=== PATIENT | female | born 1965 | race Caucasian/White ===

== ENCOUNTER → 2016-12-05 | Day surgery (SDC) | payer OTHER ==
[2016-11-28 12:08] VITALS: Ht 160 cm; Wt 99.5 kg
[~2016-12-05] VITALS: Ht 160 cm; Wt 99.5 kg
[~2016-12-05] MED LIST: ATOR-24 PO; ATROPINE SULFATE 0.1 MG/ML 5ML SYR IV PRN; BLADDER PILL PO; CHOL100010 PO; CHOL100041 PO; CITA20TA4 PO; CYAN100020 PO; DTRSR/2 PO; EpHEDrine SULFATE INJ 50 MG/ML AMP IV PRN; LEVOIUD; LIDOCAINE HCL 2% 2 ML VIAL (20MG/ML) ONE; METH118C PO; MIRA1TAB3 PO; MYRBETRIQ PO; OXYC1TAB3 PO; PANT40TA PO; PENT100C6 PO; PROPOFOL IV EMULSION 10 MG/ML 20 ML VIAL IV ONE; RANI150T3 PO; SODIUM CHLORIDE 0.9% 500ML 500 ML IV ONE
--- NOTE | 2016-12-05 12:05 | Endo History and Physical ---
History & Physical Date of Service: Dec 05, 2016. Chief Complaint: Nausea, abd pain Referring Physician: Dr. Val Jose History of Present Illness 51 yo CF who presents for EGD secondary to nausea and abdominal pain. Past Surgical History Hx Cardiac Surgery: No Hx Internal Defibrillator: No Hx Pacemaker: No Hx Abdominal Surgery: No Hx of Implantable Prosthesis: No Hx Post-Op Nausea and Vomiting: No Hx Cancer Surgery: No Hx Thoracic Surgery: No Hx Orthopedic: No Hx Urinary Tract Surgery: Yes (BLADDER SURGERY) Family History Polyp Social History Smoking Status: Never Smoker Hx Substance Use: No Hx Alcohol Use: No Allergies Coded Allergies: Sulfa Drugs (Verified Allergy, Severe, GOES ALMOST BLIND, 11/28/16) Iodinated Contrast Media (Verified Allergy, Intermediate, HIVES/ITCHING, BIG LUMPS/WELTS, 11/28/16) RECEIVED MEDROL PRIOR TO EXAM 12/28/12 PT WAS SCANNED IN 2008. APPROX 10 MINUTES AFTER THE INJECTION SHE DEVELOPED HIVES, WELTS AND ITCHING ON HER BACK. KAF Current Medications Reported Home Medications Medications Dose Route/Sig Max Daily Dose Days Date Category Dose Instructions Uribel (Avqvavavhci-Uieek-Xxaqljqqi Bl) 1 Cap Cap 1 Cap PO QID 11/28/16 Reported NEW PRESCRIPTION - HAS NOT STARTED YET Detrol LA (Tolterodine Tartrate) 2 Mg Capcr 1 Cap PO QAM 11/28/16 Reported NEW PRESCRIPTION - HAS NOT STARTED YET Mirena (Levonorgestrel (Iud)) 20 Mcg/24 Hr Iud 1 CONTINOUS 11/28/16 Reported Zantac (Ranitidine HCl) 150 Mg Tab 150 Mg PO HS 11/28/16 Reported Protonix (Pantoprazole Sodium) 40 Mg Tab 40 Mg PO QAM 11/28/16 Reported Vitamin B12 (Cyanocobalamin) 1,000 Mcg Tab 1,000 Mcg PO HS 06/01/16 Reported Citalopram Hydrobromide 20 Mg Tab 20 Mg PO HS 02/18/16 Reported Vitamin D (Cholecalciferol) 1,000 Inter.unit Tab 1,000 Inter.unit PO HS 06/01/15 Reported Lipitor (Atorvastatin Calcium) 40 Mg Tab 40 Mg PO HS 06/01/15 Reported Vital Signs Weight (Kilograms): 99.55 Height (Feet): 5 Height (Inches): 3 Date Time Temp Pulse Resp B/P Pulse Ox O2 Delivery O2 Flow Rate FiO2 12/05/16 11:40 36.8 83 20 150/94 100 Room Air Physical Exam General Appearance: WD/WN, no apparent distress Respiratory/Chest: Auscultation: breath sounds normal Cardiovascular: Heart Auscultation: RRR Abdomen: Bowel Sounds: normal Inspection & Palpation: soft, non-distended, no tenderness, guarding & rebound Assessment and Plan Assessment: 51 yo CF who presents for EGD secondary to nausea and abdominal pain. Plan: Proceed with colonoscopy.
--- NOTE | 2016-12-05 12:18 | GI REPORT ---
Procedure Date: 12/05/2016 11:52 AM Procedure: Upper GI endoscopy Indications: Epigastric abdominal pain Medicines: Monitored Anesthesia Care Complications: No immediate complications. Estimated Blood Loss: Estimated blood loss: none. Procedure: Pre-Anesthesia Assessment: - Prior to the procedure, a History and Physical was performed, and patient medications and allergies were reviewed. The patient's tolerance of previous anesthesia was also reviewed. The risks and benefits of the procedure and the sedation options and risks were discussed with the patient. All questions were answered, and informed consent was obtained. Prior Anticoagulants: The patient has taken no previous anticoagulant or antiplatelet agents. ASA Grade Assessment: II - A patient with mild systemic disease. After reviewing the risks and benefits, the patient was deemed in satisfactory condition to undergo the procedure. After obtaining informed consent, the endoscope was passed under direct vision. Throughout the procedure, the patient's blood pressure, pulse, and oxygen saturations were monitored continuously. The scope was introduced through the mouth, and advanced to the second part of duodenum. The upper GI endoscopy was accomplished without difficulty. The patient tolerated the procedure well. Findings: The esophagus was normal. A small hiatus hernia was present. Localized moderate inflammation characterized by erythema was found in the gastric antrum. Biopsies were taken with a cold forceps for histology. The examined duodenum was normal. Impression: - Normal esophagus. - Small hiatus hernia. - Gastritis. Biopsied. - Normal examined duodenum. Recommendation: - Resume previous diet. - Continue present medications. - Await pathology results. - Return to primary care physician as previously scheduled. Juvenal Boyer DO 12/05/2016 12:17:49 PM This report has been signed electronically. Note Initiated On: 12/05/2016 11:52 AM
--- NOTE | 2016-12-05 12:18 | Discharge Instructions ---
Endoscopy Patient Instructions Date / Procedure(s) Performed Dec 05, 2016. EGD Allergy Information Coded Allergies: Sulfa Drugs (Verified Allergy, Severe, GOES ALMOST BLIND, 11/28/16) Iodinated Contrast Media (Verified Allergy, Intermediate, HIVES/ITCHING, BIG LUMPS/WELTS, 11/28/16) RECEIVED MEDROL PRIOR TO EXAM 12/28/12 PT WAS SCANNED IN 2008. APPROX 10 MINUTES AFTER THE INJECTION SHE DEVELOPED HIVES, WELTS AND ITCHING ON HER BACK. KAF Discharge Date / Findings Dec 05, 2016. Gastritis s/p biopsies Hiatal hernia Medication Instructions Stopped Medication(s): Patient was told to take only her protonix this am. OK to resume all medications today as prescribed. Reported Home Medications Medications Dose Route/Sig Max Daily Dose Days Date Category Dose Instructions Uribel (Oqduifbyoet-Uwnvu-Pskwfupji Bl) 1 Cap Cap 1 Cap PO QID 11/28/16 Reported NEW PRESCRIPTION - HAS NOT STARTED YET Detrol LA (Tolterodine Tartrate) 2 Mg Capcr 1 Cap PO QAM 11/28/16 Reported NEW PRESCRIPTION - HAS NOT STARTED YET Mirena (Levonorgestrel (Iud)) 20 Mcg/24 Hr Iud 1 CONTINOUS 11/28/16 Reported Zantac (Ranitidine HCl) 150 Mg Tab 150 Mg PO HS 11/28/16 Reported Protonix (Pantoprazole Sodium) 40 Mg Tab 40 Mg PO QAM 11/28/16 Reported Vitamin B12 (Cyanocobalamin) 1,000 Mcg Tab 1,000 Mcg PO HS 06/01/16 Reported Citalopram Hydrobromide 20 Mg Tab 20 Mg PO HS 02/18/16 Reported Vitamin D (Cholecalciferol) 1,000 Inter.unit Tab 1,000 Inter.unit PO HS 06/01/15 Reported Lipitor (Atorvastatin Calcium) 40 Mg Tab 40 Mg PO HS 06/01/15 Reported Provider Instructions Activity Restrictions - No exercising or heavy lifting for 24 hours. - Do not drink alcohol the day of the procedure. - Do not drive a car or operate machinery until the day after the procedure. - Do not make any important decisions or sign important papers in 24 hours after the procedure. Following Day: - Return to full activity which may include returning to work/school. Diet Start your diet with liquids and light foods (jello, soup, juice, toast). Then eat your usual diet if not nauseated. Treatment For Common After Affects For mild abdominal pain, bloating, or excessive gas: - Rest - Eat lightly - Lie on right side Follow-Up Information Follow-up with Dr. Val Jose as scheduled Anesthesia Information What You Should Know You have had a procedure that required some medicine to reduce anxiety and discomfort. This treatment is called moderate sedation. After receiving the treatment, you may be sleepy, but you will be able to breathe on your own. The effects of the treatment may last for several hours. Follow these instructions along with Activity/Diet recommendations noted above: * Do NOT do anything where dizziness or clumsiness would be dangerous. * Rest quietly at home today, then you can be up and about tomorrow. * Have a responsible person stay with you the rest of today. * You may have had an I.V. today. If so, you may take the dressing off later today. Recommendations Call your doctor if: * Trouble breathing * Continuous vomiting for more than 24 hours * Temperature above 101 degrees * Severe abdominal pain or bloating * Pain not relieved by pain medicine ordered * There is increased drainage or redness from any incision * A large amount of rectal bleeding greater than 2-3 tablespoons. (If you had a polyp/s removed or have hemorrhoids, a small amount of blood - from the rectum is to be expected.) * You have any unanswered questions or concerns. IN THE EVENT OF A SERIOUS EMERGENCY, GO TO THE NEAREST EMERGENCY ROOM Your discharge instructions were prepared by provider Juvenal Boyer. Patient Instructions Signature Page Mounika Sullivan Patient (or Guardian) Signature/Date: I have read and understand the instructions given to me by my caregivers. Caregiver/RN/Doctor Signature/Date: The above-named patient and/or guardian has received patient instructions on this date. + Original Patient Signature Page (only) stays with chart. Please make copy for patient.
--- NOTE | 2016-12-05 12:33 | Anesthesiology Progress Note ---
Anesthesia Post Op Note Date & Time Dec 05, 2016 at 12:32 Vital Signs Pain Intensity: 0 Vital Signs Past 12 Hours Date Time Temp Pulse Resp B/P Pulse Ox O2 Delivery O2 Flow Rate FiO2 12/05/16 12:23 88 20 127/83 97 Room Air 12/05/16 11:40 36.8 83 20 150/94 100 Room Air Notes Mental Status: alert / awake / arousable, participated in evaluation Pt Amnestic to Procedure: Yes Nausea / Vomiting: adequately controlled Pain: adequately controlled Airway Patency, RR, SpO2: stable & adequate BP & HR: stable & adequate Hydration State: stable & adequate Anesthetic Complications: no major complications apparent
[2016-12-05 12:53] VITALS: BP 140/77; PULSE 74; O2SAT 98
== END | disposition home or self-care (01) ==
LOC: C.GI 10:40
PROVIDERS: ATTEND Internal Medicine
DX: K29.50 Unspecified chronic gastritis without bleeding (principal); K44.9 Diaphragmatic hernia without obstruction or gangrene; Z83.71 Family history of colonic polyps

== ENCOUNTER → 2017-02-27 | Outpatient (CLI) | payer OTHER ==
[~2017-02-27] MED LIST changes: -ATROPINE SULFATE 0.1 MG/ML 5ML SYR IV PRN; -DTRSR/2 PO; -EpHEDrine SULFATE INJ 50 MG/ML AMP IV PRN; -LEVOIUD; -LIDOCAINE HCL 2% 2 ML VIAL (20MG/ML) ONE; -METH118C PO; -PROPOFOL IV EMULSION 10 MG/ML 20 ML VIAL IV ONE; -RANI150T3 PO; -SODIUM CHLORIDE 0.9% 500ML 500 ML IV ONE
== END | disposition home or self-care (01) ==
LOC: C.PATHSPEC 14:19
PROVIDERS: ATTEND Obstetrics & Gynecology
DX: N92.0 Excessive and frequent menstruation with regular cycle (principal)

== ENCOUNTER → 2017-02-27 | Outpatient (CLI) | payer OTHER | END | disposition home or self-care (01) | LOC: C.PAPS 15:15 | PROVIDERS: ATTEND Obstetrics & Gynecology | DX: N92.0 Excessive and frequent menstruation with regular cycle (principal); R87.616 Satisfactory cervical smear but lacking transformation zone ==

== ENCOUNTER → 2017-03-23 | Day surgery (SDC) | payer OTHER ==
[2017-02-21 12:20] VITALS: Ht 160 cm; Wt 98.6 kg
[2017-02-27 12:45] LABS: BASO % 0.1 %; BASO ABS # 0.01 K/uL (0-0.2); COMPLETE YES; EOS % 1.1 %; HEMATOCRIT 39.6 % (37-47); IG% 0.1 %; LYMPH % 19.9 %; LYMPH ABS # 1.41 K/uL (1.2-3.4); MEAN CELL VOLUME 85.3 fL (80-100); MEAN CORPUSCULAR HEMOGLOBIN 28.2 pg (25-34); MEAN CORPUSCULAR HGB CONC 33.1 g/dl (32-36); MEAN PLATELET VOLUME 9.8 fL (7.4-10.4); MONO % 7.1 %; NEUT % 71.7 %; PLATELET COUNT 270 K/uL (130-400); RED BLOOD COUNT 4.64 M/uL (4.2-5.4); WHITE BLOOD COUNT 7.08 K/uL (4.8-10.8)
[~2017-03-23] VITALS: Ht 160 cm; Wt 98.6 kg
[~2017-03-23] MED LIST changes: +ACETIC ACID 4% (WHITE VINEGAR) 30ML ONE; +ATROPINE SULFATE 0.1 MG/ML 5ML SYR IV PRN; +DEXAMETHASONE SOD INJ 4 MG/ML VIAL ONE; +EpHEDrine SULFATE INJ 50 MG/ML AMP IV PRN; +FENTANYL CITRATE INJ 50 MCG/1 ML 2 ML VIAL IV PRN; +FENTANYL CITRATE INJ 50 MCG/1 ML 2 ML VIAL ONE; +FLUMAZENIL 0.1 MG/1 ML 10 ML VIAL IV PRN; +HYDROmorphone INJ 2 MG/ML SYR/VIAL IV PRN; +KETOROLAC TROMETHAMINE 30 MG/ML VIAL ONE; +LABETALOL HCL IV 5 MG/ML 20ML IV PRN; +LACTATED RINGER'S 1000ML 1,000 ML IV SCH; +LIDOCAINE HCL 2% 2 ML VIAL (20MG/ML) ONE; +MEPERIDINE HCL 25 MG/ML CARP IV PRN; +MIDAZOLAM HCL 1 MG/ML 2ML VIAL ONE; +NALOXONE HCL 0.4 MG/1 ML VIAL/CARP IV PRN; +ONDANSETRON INJ 2 MG/ML 2 ML VIAL IV PRN; +ONDANSETRON INJ 2 MG/ML 2 ML VIAL ONE; +OXYCODONE/ACETAMINOPHEN 5-325 TAB PO PRN; +PHENYLEPHRINE 100MCG/ML 5ML SYR IV PRN; +PROMETHAZINE HCL INJ 25 MG in SODIUM CHLORIDE 0.9% 50ML 50 ML IV PRN; +PROPOFOL IV EMULSION 10 MG/ML 20 ML VIAL IV ONE; +SODIUM CHLORIDE 0.9% 1000ML 1,000 ML IV SCH
--- NOTE | 2017-03-23 09:52 | History & Physical Bridge - SC ---
H&P Re-Evaluation Bridge Note: I have examined the patient, reviewed the History & Physical and in the interval since the performance of the History & Physical I have noted the following changes of clinical significance: No changes noted
--- NOTE | 2017-03-23 11:31 | [facility] Post Operative Brief Note ---
Immediate Operative Summary Operative Date March 23, 2017. Pre-Operative Diagnosis Menorrhagia Post-Operative Diagnosis Same Procedure(s) Performed Dilatation And Curettage, Hysteroscopic Endometrial Ablation With Novasure Surgeon Dr. Harding Admissions Rn Surgeon(s) None Estimated Blood Loss 10ml Findings Uterus sounded to 9cm, Cervix measured 3cm, therefore cavity 6cm. Bilateral tubal ostia visualized. Cavity width 2.0cm. Power 66. Time 1 min 35 sec. Fluid deficit 500cc. Post-Novasure hysteroscopy shows successful burn of tissue - no pink noted. Specimens A. Endometrial Curettings Drains Patient emptied bladder prior to procedure Anesthesia General Complication(s) None Disposition Recovery Room / PACU
--- NOTE | 2017-03-23 11:43 | Discharge Instructions-SurgCtr ---
Discharge Instructions Date of Service March 23, 2017. Visit Reason for Visit: Menorrhagia Discharge Discharge Diagnosis / Problem: s/p endometrial ablation Discharge Goals Goal(s): Diagnostic testing, Therapeutic intervention Activity Recommendations Activity Limitations: per Instructions/Follow-up section Anesthesia . Post Anesthesia Instructions: If you have had General Anesthesia or IV Sedation: * Do not drive today. * Resume driving when surgeon permits. * Do not make important decisions or sign legal documents today. * Call surgeon for: 1. Temperature elevations greater than 101 degrees F. 2. Uncontrollable pain. 3. Excessive bleeding. 4. Persistent nausea and vomiting. 5. Medication intolerance (nausea, vomiting or rash). * For nausea and vomiting use only clear liquids such as: tea, soda, bouillon until nausea subsides, then gradually increase diet as tolerated. * If you have any concerns or questions, call your surgeon's office. If physician is unavailable and it is an emergency, call 911 or go to the nearest emergency room. . Instructions / Follow-Up Instructions / Follow-Up ACTIVITY RECOMMENDATIONS: * Avoid tampons, douching, hot tubs, pools, and intercourse until bleeding has stopped - OR AT LEAST 2 WEEKS. * May shower as usual. * No strenuous activity for 24-48 hours. After 24-48 hours, you may do anything you feel like doing (driving and sports are okay). SPECIAL CARE INSTRUCTIONS: Special Diet: * Mild nausea may occur in the immediate post-operative period. * Take clear liquids such as tea, cola or bouillon until all nausea has subsided; you may then resume your normal diet. Special Care: * Light bleeding and vaginal spotting can last from a few days to 3-4 weeks. Call your doctor if bleeding becomes heavier than the heaviest part of your period. * Check your temperature twice a day for one week. If it goes above 100.4 degrees Fahrenheit (38.0 Celsius), notify your doctor. * Call your doctor's office for an appointment for 2 weeks after your surgery. FOLLOW-UP VISIT: Call your doctor's office for an appointment for 2 weeks after your surgery. Diet Recommendations Home Diet: resume previous diet Procedures Procedures Performed: Dilatation And Curettage, Hysteroscopic Endometrial Ablation With Novasure Pending Studies Studies pending at discharge: yes List of pending studies: D&C - pathology Medical Emergencies . Who to Call and When: Medical Emergencies: If at any time you feel your situation is an emergency, please call 911 immediately. . Non-Emergent Contact Non-Emergency issues call your: Primary Care Provider, Accounting Generalist . . "Provider Documentation" section prepared by Trinity Harding. .
--- NOTE | 2017-03-23 12:01 | Anesthesia Progress Nt - [facility] ---
Anesthesia Post Op Note Date & Time March 23, 2017 at 12:01 Vital Signs Pain Intensity: 0 Vital Signs Past 12 Hours Date Time Temp Pulse Resp B/P Pulse Ox O2 Delivery O2 Flow Rate FiO2 03/23/17 11:34 36.4 96 16 133/88 98 Mask 6 03/23/17 09:08 36.8 80 20 144/91 97 Room Air Notes Mental Status: alert / awake / arousable, participated in evaluation Pt Amnestic to Procedure: Yes Nausea / Vomiting: adequately controlled Pain: adequately controlled Airway Patency, RR, SpO2: stable & adequate BP & HR: stable & adequate Hydration State: stable & adequate Anesthetic Complications: no major complications apparent
[2017-03-23 12:35] VITALS: TEMP 36.6
[2017-03-23 13:15] VITALS: BP 145/86; PULSE 67; O2SAT 97
--- NOTE | 2017-03-24 07:05 | OPERATIVE REPORT ---
DATE OF OPERATION: 03/23/2017 SURGEON: Trinity Harding DO PREOPERATIVE DIAGNOSIS: Menorrhagia. POSTOPERATIVE DIAGNOSIS: Same. PROCEDURES PERFORMED: 1. Hysteroscopy. 2. D\T\C. 3. NovaSure endometrial ablation. STRAIGHT SLICING MACHINE OPERATOR: None. ESTIMATED BLOOD LOSS: 10 mL. FINDINGS: Uterus sounded to 9 cm and cervix measured 3 cm; therefore cavity 6 cm. Bilateral tubal ostia visualized. Cavity 2.0 cm width. Power 66. Time of burn 1 minute 35 seconds. Fluid deficit 500 mL. Post-NovaSure hysteroscopy shows successful burn of tissue with no pink tissue noted. SPECIMENS: Endometrial curettings. DRAINS: The patient emptied the bladder prior to procedure. ANESTHESIA: General. COMPLICATIONS: None. DISPOSITION: Stable and good to recovery room. INDICATIONS FOR PROCEDURE: The patient is a 51-year-old with a longstanding history of heavy periods, had tried IUD as well as oral contraceptive pills and these were unsuccessful for controlling her bleeding. In-office endometrial biopsy performed prior to procedure revealed negative pathology and she elected to proceed with NovaSure ablation for treatment of heavy periods. DESCRIPTION OF PROCEDURE: The patient was taken to the operating room, where general anesthesia was administered. She was prepared and draped in the usual sterile fashion with feet in candy cane stirrups. Vinegar was used for vaginal prep due to a Betadine allergy. The weighted speculum was placed in the vagina. The cervix was visualized and the anterior lip was grasped with a single tooth tenaculum. The uterus was sounded to the above noted findings. The cervix was sequentially dilated to admit the hysteroscope. This was inserted and the cavity was viewed. Bilateral tubal ostia were noted. Pictures were taken and the hysteroscope was withdrawn. The NovaSure device was inserted and the cavity width was 2.0 cm. This initially was thought to be too narrow for the patient's cavity, but the NovaSure device was removed. The hysteroscope was inserted and after notation of endometrial tissue damage from the NovaSure confirming that it was sitting both sides of her uterine cavity, decision was made to proceed with the NovaSure ablation. A gentle curettage was performed with a sharp curette and these endometrial curettings were sent to pathology for evaluation. NovaSure was reinserted and was deployed and cavity check was successful. The burn was then completed at a time of 1 minute 35 seconds and upon completion of the burn, the NovaSure device was withdrawn and the hysteroscope was replaced through the cervical canal to view the intrauterine cavity and a successful burn was noted with burned tissue and no pink areas of the intrauterine cavity noted. All instruments were then removed from the uterus and vagina. Excellent hemostasis was noted. The patient was cleaned of all prep and was taken from the operating room to the recovery room in stable and good condition. The patient will follow up in the office in 2 weeks and review pathology results. She was taken to recovery room in stable and good condition. I attest to the content of the Intraoperative Record and any orders documented therein. Any exceptio ns are noted below.
== END | disposition home or self-care (01) ==
LOC: X.SURG 08:50
PROVIDERS: ATTEND Obstetrics & Gynecology
DX: N92.0 Excessive and frequent menstruation with regular cycle (principal); M19.90 Unspecified osteoarthritis, unspecified site; Z68.39 Body mass index [BMI] 39.0-39.9, adult; F32.9 Major depressive disorder, single episode, unspecified; Z88.2 Allergy status to sulfonamides; Z79.899 Other long term (current) drug therapy; Z80.6 Family history of leukemia; Z83.3 Family history of diabetes mellitus; Z82.49 Family history of ischemic heart disease and other diseases of the circulatory system; Z80.3 Family history of malignant neoplasm of breast

== ENCOUNTER → 2017-04-11 | Outpatient (CLI) | payer OTHER ==
[~2017-04-11] MED LIST changes: -ACETIC ACID 4% (WHITE VINEGAR) 30ML ONE; -ATROPINE SULFATE 0.1 MG/ML 5ML SYR IV PRN; -DEXAMETHASONE SOD INJ 4 MG/ML VIAL ONE; -EpHEDrine SULFATE INJ 50 MG/ML AMP IV PRN; -FENTANYL CITRATE INJ 50 MCG/1 ML 2 ML VIAL IV PRN; -FENTANYL CITRATE INJ 50 MCG/1 ML 2 ML VIAL ONE; -FLUMAZENIL 0.1 MG/1 ML 10 ML VIAL IV PRN; -HYDROmorphone INJ 2 MG/ML SYR/VIAL IV PRN; -KETOROLAC TROMETHAMINE 30 MG/ML VIAL ONE; -LABETALOL HCL IV 5 MG/ML 20ML IV PRN; -LACTATED RINGER'S 1000ML 1,000 ML IV SCH; -LIDOCAINE HCL 2% 2 ML VIAL (20MG/ML) ONE; -MEPERIDINE HCL 25 MG/ML CARP IV PRN; -MIDAZOLAM HCL 1 MG/ML 2ML VIAL ONE; -NALOXONE HCL 0.4 MG/1 ML VIAL/CARP IV PRN; -ONDANSETRON INJ 2 MG/ML 2 ML VIAL IV PRN; -ONDANSETRON INJ 2 MG/ML 2 ML VIAL ONE; -OXYCODONE/ACETAMINOPHEN 5-325 TAB PO PRN; -PHENYLEPHRINE 100MCG/ML 5ML SYR IV PRN; -PROMETHAZINE HCL INJ 25 MG in SODIUM CHLORIDE 0.9% 50ML 50 ML IV PRN; -PROPOFOL IV EMULSION 10 MG/ML 20 ML VIAL IV ONE; -SODIUM CHLORIDE 0.9% 1000ML 1,000 ML IV SCH
== END | disposition home or self-care (01) ==
LOC: C.LAB 16:58
PROVIDERS: ATTEND Urology
DX: N39.0 Urinary tract infection, site not specified (principal)

== ENCOUNTER → 2017-05-17 | Outpatient (CLI) | payer OTHER ==
--- NOTE | 2017-05-17 13:06 | MAMMOGRAPHY REPORT ---
BILATERAL DIGITAL SCREENING MAMMOGRAM TOMOSYNTHESIS WITH CAD: 05/17/2017 CLINICAL HISTORY: Routine screening. Patient has no complaints. TECHNIQUE: Breast tomosynthesis in addition to standard 2D mammography was performed. Current study was also evaluated with a Computer Aided Detection (CAD) system. COMPARISON: Comparison is made to exams dated: 05/16/2016 mammogram, 05/13/2015 mammogram, 05/12/2014 m ammogram, 05/08/2013 mammogram, 05/07/2012 mammogram, and 04/13/2011 ultrasound - [facility]. BREAST COMPOSITION: There are scattered areas of fibroglandular density in both breasts. FINDINGS: There is a 3.8 mm focal asymmetry in the upper outer posterior left breast, for which samara tional spot compression tomosynthesis views and possibly ultrasound are recommended. A 5.3 mm oval, partially circumscribed mass in the approximate 9:00 left breast could represent a cyst. However, ad ditional targeted ultrasound and possible additional mammographic views are recommended. No other suspicious mass, architectural distortion or cluster of microcalcifications is seen bilatera lly. IMPRESSION: ACR BI-RADS CATEGORY 0: INCOMPLETE EVALUATION: NEED ADDITIONAL IMAGING EVALUATION The 3.8 mm focal asymmetry in the upper outer posterior left breast, and 5.3 mm oval, partially circu mscribed mass in the 9:00 left breast need additional imaging evaluation. The patient will be called to schedule an appointment. Approximately 10% of breast cancers are not detected with mammography. A negative mammographic report should not delay biopsy if a clinically suggestive mass is present. Emeli Silva M.D. ay/:05/17/2017 08:13:12 Director Cloud Transformation: Lesly HERRERA(R)(Collette), [facility] letter sent: Addl Imaging 0 BI-RADS Code: ACR BI-RADS Category 0: Incomplete Evaluation: Need Additional Imaging Evaluation
== END | disposition home or self-care (01) ==
LOC: C.MAMM 07:25
PROVIDERS: ATTEND Obstetrics & Gynecology
DX: Z12.31 Encounter for screening mammogram for malignant neoplasm of breast (principal); N64.89 Other specified disorders of breast; N63 Unspecified lump in breast

== ENCOUNTER → 2017-05-18 | Outpatient (CLI) | payer OTHER | END | disposition home or self-care (01) | LOC: C.PATHSPEC 10:56 | PROVIDERS: ATTEND Urology | DX: R31.29 Other microscopic hematuria (principal) ==

== ENCOUNTER → 2017-05-29 | Outpatient (CLI) | payer OTHER ==
--- NOTE | 2017-05-29 14:31 | MAMMOGRAPHY REPORT ---
UNILATERAL LEFT DIGITAL DIAGNOSTIC MAMMOGRAM TOMOSYNTHESIS AND TARGETED LEFT ULTRASOUND: 05/29/2017 CLINICAL HISTORY: 51-year-old woman called back from screening mammography for a small 4 mm focal asy mmetry in the left upper outer quadrant, and a circumscribed 5 mm mass in the medial aspect of the le ft breast. TECHNIQUE: Spot compression CC and MLO 2-D digital and tomosynthesis images of the left breast were obtained. COMPARISON: Comparison is made to exams dated: 05/17/2017 mammogram, 05/16/2016 mammogram, 05/13/2015 m ammogram, 05/12/2014 mammogram, 05/08/2013 mammogram, and 05/07/2012 mammogram - [facility]. BREAST COMPOSITION: There are scattered areas of fibroglandular density in the left breast. FINDINGS: There is persistence of a non-circumscribed 3.6 x 3.4 x 3.4 mm mass versus focal asymmetry in the upper outer posterior left breast, approximately 12.6 cm from the nipple. No associated arch itectural distortion or microcalcification. Further evaluation with ultrasound was performed. There is a low density oval circumscribed 5.6 x 3.1 x 3.1 mm mass in the medial left breast on the spot co mpression CC view, projecting just below the posterior nipple line on the MLO view in the approximate 8:00 to 9:00 axis. Further evaluation with ultrasound was performed. Targeted ultrasound was performed in the medial left breast and also the upper outer quadrant. Throu ghout the medial left breast, normal fibroglandular tissue is seen without a discrete solid or cystic mass. In the 1:00 axis approximately 10 cm from the nipple, there is a rounded hypoechoic mass with out evidence of posterior shadowing or posterior acoustic enhancement. It measures 2.4 x 2.3 x 2.2 m m and likely correlates with the mammographic focal asymmetry versus mass in the upper outer quadrant . This is indeterminate and definitive characterization with ultrasound guided cyst aspiration versu s core needle biopsy is recommended. IMPRESSION: ACR BI-RADS CATEGORY 4: SUSPICIOUS, TARGETED ULTRASOUND ACR BI-RADS CATEGORY 4: SUSPICIO US 1. Ultrasound guided cyst aspiration versus core needle biopsy is recommended for a small, 2.4 mm so lid versus cystic mass in the 1:00 left breast, 10 cm from the nipple, thought to correlate with the mammographic mass versus focal asymmetry in the upper outer quadrant. 2. A circumscribed oval 5 x 3 mm mass in the lower inner quadrant of the left breast has no sonograp hic correlate identified. Given the circumscribed borders and benign mammographic features this most likely represents a benign cyst. It does not appear significantly changed comparing to the prior 20 16 mammograms. Nevertheless, pending benign pathology results in the 1:00 axis, a short interval fol low-up diagnostic left mammogram and possible repeat ultrasound is recommended to ensure stability in 6 months. These results and recommendations were discussed with the patient at the time of the exam. She tenta tively scheduled the left breast procedure prior to leaving the department. Approximately 10% of breast cancers are not detected with mammography. A negative mammographic report should not delay biopsy if a clinically suggestive mass is present. Emeli Silva M.D. ay/:05/29/2017 12:14:19 Manager Intelligence: Lesly VALDERRAMA)(Collette), [facility] letter sent: Abnormal 4/5 BI-RADS Code: ACR BI-RADS Category 4: Suspicious Ultrasound BI-RADS: ACR BI-RADS Category 4: Suspici ous
== END | disposition home or self-care (01) ==
LOC: C.MAMM 09:49
PROVIDERS: ATTEND Obstetrics & Gynecology
DX: N63 Unspecified lump in breast (principal)

== ENCOUNTER 2017-06-03 11:16 | Emergency (ER) | payer OTHER ==
[~2017-06-03] VITALS: Ht 160 cm; Wt 9.0 kg
[~2017-06-03 11:16] MED LIST changes: -CHOL100041 PO; -MIRA1TAB3 PO; -OXYC1TAB3 PO; -PENT100C6 PO
[2017-06-03 11:19] VITALS: Ht 160 cm; Wt 9.0 kg
[2017-06-03] MEDS ORDERED: PENT100C6 PO (11:34)
[2017-06-03] MEDS ORDERED: MIRA1TAB3 PO (11:34)
[2017-06-03] MEDS ORDERED: CHOL100041 PO (11:34)
[2017-06-03] MEDS ORDERED: ONDANSETRON INJ 2 MG/ML 2 ML VIAL IV STA (11:50)
[2017-06-03] MEDS ORDERED: MoRPHine SULFATE 4 MG/ML 1 ML CARP IV STA (11:50)
[2017-06-03 12:17] LABS: URINE APPEARANCE CLEAR (CLEAR); URINE BILIRUBIN NEG (NEG); URINE COLOR YELLOW; URINE EPITHELIAL CELL AUTO >30 /lpf (0-5); URINE NITRITE NEG (NEG); URINE SPECIFIC GRAVITY 1.024 (1.000-1.030); UROBILINOGEN NEG (NEG)
[2017-06-03 12:19] LABS: MANUAL MICROSCOPIC REQUIRED? NO; REVIEW REQ? NO
[2017-06-03 12:26] LABS: BASO % 0.2 %; BASO ABS # 0.02 K/uL (0-0.2); COMPLETE YES; EOS % 0.7 %; HEMATOCRIT 42.5 % (37-47); IG% 0.2 %; LYMPH % 16.8 %; LYMPH ABS # 1.47 K/uL (1.2-3.4); MEAN CELL VOLUME 85.7 fL (80-100); MEAN CORPUSCULAR HEMOGLOBIN 29.2 pg (25-34); MEAN CORPUSCULAR HGB CONC 34.1 g/dl (32-36); MEAN PLATELET VOLUME 9.1 fL (7.4-10.4); MONO % 6.6 %; NEUT % 75.5 %; PLATELET COUNT 233 K/uL (130-400); RED BLOOD COUNT 4.96 M/uL (4.2-5.4); WHITE BLOOD COUNT 8.74 K/uL (4.8-10.8)
--- NOTE | 2017-06-03 12:42 | DIAGNOSTIC IMAGING REPORT ---
ABD/PELVIS WITHOUT FOR STONE CT DOSE: 1621.18 mGy.cm HISTORY: left flank eval for stone TECHNIQUE: Multiaxial CT images of the abdomen and pelvis were performed without the use of intravenous and oral contrast according to the standard department stone protocol. COMPARISON STUDY: 10/31/2016 FINDINGS: Minimal dependent basilar atelectasis. Mild fatty infiltration of liver. Spleen and pancreas are unremarkable. Kidneys negative for calcification or hydronephrosis. The adrenal glands are unremarkable. The bladder is midline. Bowel pattern is considered nonobstructive. IMPRESSION: No acute process of the abdomen or pelvis. Mild fatty replacement of the liver. No change from the prior exam. The above report was generated using voice recognition software. It may contain grammatical, syntax or spelling errors. Electronically signed by: Shane Cedeño M.D. 06/03/2017 12:41 PM Dictated Date/Time: 06/03/2017 12:38 PM
--- NOTE | 2017-06-03 13:16 | DIAGNOSTIC IMAGING REPORT ---
LUMBAR SPINE WITHOUT CT DOSE: HISTORY: Pain eval for disc dz. TECHNIQUE: Multiaxial CT images of the lumbar spine were performed and reformatted in the sagittal and coronal plane without the use of contrast. COMPARISON: None. FINDINGS: No fractures. No subluxation. Paraspinal soft tissues are unremarkable. Disc spaces are well-preserved IMPRESSION: Negative study of the lumbar spine The above report was generated using voice recognition software. It may contain grammatical, syntax or spelling errors. Electronically signed by: Shane Cedeño M.D. 06/03/2017 1:15 PM Dictated Date/Time: 06/03/2017 1:14 PM
--- NOTE | 2017-06-03 13:31 | DIAGNOSTIC IMAGING REPORT ---
PELVIS/BILATERAL HIP 2 VIEWS CLINICAL HISTORY: hip pain eval for arthritis COMPARISON STUDY: None FINDINGS: Negative study. Hips are symmetric. No evidence for acetabular protrusion. IMPRESSION: Negative study The above report was generated using voice recognition software. It may contain grammatical, syntax or spelling errors. Electronically signed by: Shane Cedeño M.D. 06/03/2017 1:30 PM Dictated Date/Time: 06/03/2017 1:29 PM
[2017-06-03 13:49] LABS: BUN/CREATININE RATIO 21.9 (10-20); CALCIUM 9.2 mg/dl (8.5-10.1); CREATININE 0.89 mg/dl (0.60-1.20); POTASSIUM 4.3 mmol/L (3.5-5.1)
[2017-06-03] MEDS ORDERED: KETOROLAC TROMETHAMINE 30 MG/ML VIAL IV STA (13:51)
[2017-06-03] MEDS ORDERED: OXYC1TAB3 PO (14:09)
[2017-06-03 15:05] VITALS: BP 125/92; PULSE 72; TEMP 36.7; O2SAT 98
--- NOTE | 2017-06-03 17:02 | EMERGENCY ROOM VISIT NOTE ---
History Report prepared by Keegan: Tatyana Goodrich Under the Supervision of: Dr. Jerry Lambert M.D. First contact with patient: 11:43 Chief Complaint: BACK PAIN Stated Complaint: LEFT KIDNEY PAIN,PAIN BACK TO HIPS History of Present Illness The patient is a 51 year old female who presents to the Emergency Room with complaints of persistent left flank pain that began around 0200 this morning. She currently rates her discomfort as a 10/10 in severity. The patient states that her pain radiates into her left abdomen. She additionally notes ongoing bilateral hip discomfort for months. She denies any injury. The patient denies any history of kidney stones. She describes her discomfort as a sharp pain. The patient states that she has hematuria, but states that it is normal for her. She states that she follows with Dr. Silva for her hematuria. The patient denies any burning with urination. She states that she has been nauseous, but denies any vomiting or fever. The patient denies any chance of . Source of History: patient Onset: 0200 this morning Position: other (left flank) Symptom Intensity: 10/10 Quality: sharp Timing: other (persistent) Associated Symptoms: + nausea, + abdominal pain (left sided), + urinary symptoms (hematuria), No fevers, No vomiting Note: Associated symptoms: bilateral hip pain Review of Systems See HPI for pertinent positives & negatives. A total of 10 systems reviewed and were otherwise negative. Past Medical & Surgical Medical Problems: (1) Hyperlipidemia Surgical Problems: (1) History of wisdom tooth extraction Family History Cancer Diabetes mellitus Hypertension Kidney stones Social History Smoking Status: Never Smoker Marital Status: Housing Status: lives with family Occupation Status: employed Current/Historical Medications Scheduled Atorvastatin (Lipitor), 40 MG PO HS Cholecalciferol (D 1000), 1,000 UNITS PO HS Citalopram Hydrobromide (Citalopram Hydrobromide), 20 MG PO HS Cyanocobalamin (Vitamin B12), 1,000 MCG PO HS Mirabegron (Myrbetriq Er), 50 MG PO DAILY Pantoprazole (Protonix), 40 MG PO QAM Pentosan Polysulfate Sodium (Elmiron), 100 MG PO BID Scheduled PRN Oxycodone Ir (Roxicodone Ir), 5 MG PO Q4H PRN for Pain Allergies Coded Allergies: Sulfa Drugs (Verified Allergy, Severe, GOES ALMOST BLIND, 06/03/17) Iodinated Contrast Media (Verified Allergy, Intermediate, HIVES/ITCHING, BIG LUMPS/WELTS, 06/03/17) RECEIVED MEDROL PRIOR TO EXAM 12/28/12 PT WAS SCANNED IN 2008. APPROX 10 MINUTES AFTER THE INJECTION SHE DEVELOPED HIVES, WELTS AND ITCHING ON HER BACK. K[facility] Physical Exam Vital Signs Date Time Temp Pulse Resp B/P (MAP) Pulse Ox O2 Delivery O2 Flow Rate FiO2 06/03/17 15:05 36.7 72 18 125/92 98 06/03/17 13:43 82 18 145/89 97 Room Air 06/03/17 11:19 36.8 85 16 165/110 100 Physical Exam Constitutional: Vital signs reviewed. Eyes: Pupils are equal round reactive to light. Conjunctiva are noninjected. ENT: Pharynx is clear without erythema or exudate. Mucous membranes are moist. Neck supple without meningeal signs. Respiratory: Clear to auscultation bilaterally. Breath sounds are equal bilaterally. Cardiovascular: Regular rate and rhythm. No rubs or gallops. GI: Soft, nondistended and nontender. Bowel sounds are present. Musculoskeletal: No CVA tenderness. Full range of motion of both hips without swelling or erythema. Mild tenderness to left hip with deep palpation. No peripheral edema. Integumentary: No cyanosis. Neurological: The patient is awake and alert. No focal deficits. Motor and sensation are intact throughout lower extremities. Psychiatric: Normal affect. Medical Decision & Procedures ER Provider Diagnostic Interpretation: Radiology results as stated below per my review and the radiologist's interpretation: PELVIS/BILATERAL HIP 2 VIEWS CLINICAL HISTORY: hip pain eval for arthritis COMPARISON STUDY: None FINDINGS: Negative study. Hips are symmetric. No evidence for acetabular protrusion. IMPRESSION: Negative study The above report was generated using voice recognition software. It may contain grammatical, syntax or spelling errors. Electronically signed by: Shane Cedeño M.D. 06/03/2017 1:30 PM Dictated Date/Time: 06/03/2017 1:29 PM ABD/PELVIS WITHOUT FOR STONE CT DOSE: 1621.18 mGy.cm HISTORY: left flank eval for stone TECHNIQUE: Multiaxial CT images of the abdomen and pelvis were performed without the use of intravenous and oral contrast according to the standard department stone protocol. COMPARISON STUDY: 10/31/2016 FINDINGS: Minimal dependent basilar atelectasis. Mild fatty infiltration of liver. Spleen and pancreas are unremarkable. Kidneys negative for calcification or hydronephrosis. The adrenal glands are unremarkable. The bladder is midline. Bowel pattern is considered nonobstructive. IMPRESSION: No acute process of the abdomen or pelvis. Mild fatty replacement of the liver. No change from the prior exam. The above report was generated using voice recognition software. It may contain grammatical, syntax or spelling errors. Electronically signed by: Shane Cedeño M.D. 06/03/2017 12:41 PM Dictated Date/Time: 06/03/2017 12:38 PM LUMBAR SPINE WITHOUT CT DOSE: HISTORY: Pain eval for disc dz. TECHNIQUE: Multiaxial CT images of the lumbar spine were performed and reformatted in the sagittal and coronal plane without the use of contrast. COMPARISON: None. FINDINGS: No fractures. No subluxation. Paraspinal soft tissues are unremarkable. Disc spaces are well-preserved IMPRESSION: Negative study of the lumbar spine The above report was generated using voice recognition software. It may contain grammatical, syntax or spelling errors. Electronically signed by: Shane Cedeño M.D. 06/03/2017 1:15 PM Dictated Date/Time: 06/03/2017 1:14 PM Laboratory Results 06/03/17 12:10 Red Blood Count 4.96, Mean Corpuscular Volume 85.7, Mean Corpuscular Hemoglobin 29.2, Mean Corpuscular Hemoglobin Concent 34.1, Mean Platelet Volume 9.1, Neutrophils (%) (Auto) 75.5, Lymphocytes (%) (Auto) 16.8, Monocytes (%) (Auto) 6.6, Eosinophils (%) (Auto) 0.7, Basophils (%) (Auto) 0.2, Neutrophils # (Auto) 6.59, Lymphocytes # (Auto) 1.47, Monocytes # (Auto) 0.58, Eosinophils # (Auto) 0.06, Basophils # (Auto) 0.02 06/03/17 12:56 Test 06/03/17 00:00 06/03/17 12:10 06/03/17 12:56 Urine Color YELLOW Urine Appearance CLEAR (CLEAR) Urine pH 5.0 (4.5-7.5) Urine Specific [place] 1.024 (1.000-1.030) Urine Protein NEG (NEG) Urine Glucose (UA) NEG (NEG) Urine Ketones NEG (NEG) Urine Occult Blood 1+ (NEG) Urine Nitrite NEG (NEG) Urine Bilirubin NEG (NEG) Urine Urobilinogen NEG (NEG) Urine Leukocyte Esterase NEG (NEG) Urine WBC (Auto) 0 /hpf (0-5) Urine RBC (Auto) 0-4 /hpf (0-4) Urine Hyaline Casts (Auto) 1-5 /lpf (0-5) Urine Epithelial Cells (Auto) >30 /lpf (0-5) Urine Bacteria (Auto) NEG (NEG) Urine Test NEG (NEG) White Blood Count 8.74 K/uL (4.8-10.8) Red Blood Count 4.96 M/uL (4.2-5.4) Hemoglobin 14.5 g/dL (12.0-16.0) Hematocrit 42.5 % (37-47) Mean Corpuscular Volume 85.7 fL (80-100) Mean Corpuscular Hemoglobin 29.2 pg (25-34) Mean Corpuscular Hemoglobin Concent 34.1 g/dl (32-36) Platelet Count 233 K/uL (130-400) Mean Platelet Volume 9.1 fL (7.4-10.4) Neutrophils (%) (Auto) 75.5 % Lymphocytes (%) (Auto) 16.8 % Monocytes (%) (Auto) 6.6 % Eosinophils (%) (Auto) 0.7 % Basophils (%) (Auto) 0.2 % Neutrophils # (Auto) 6.59 K/uL (1.4-6.5) Lymphocytes # (Auto) 1.47 K/uL (1.2-3.4) Monocytes # (Auto) 0.58 K/uL (0.11-0.59) Eosinophils # (Auto) 0.06 K/uL (0-0.5) Basophils # (Auto) 0.02 K/uL (0-0.2) RDW Standard Deviation 43.4 fL (36.4-46.3) RDW Coefficient of Variation 13.9 % (11.5-14.5) Immature Granulocyte % (Auto) 0.2 % Immature Granulocyte # (Auto) 0.02 K/uL (0.00-0.02) Anion Gap 6.0 mmol/L (3-11) Est Creatinine Clear Calc Drug Dose 10.9 ml/min Estimated GFR () 88.2 Estimated GFR (Non- 76.1 BUN/Creatinine Ratio 21.9 (10-20) Calcium Level 9.2 mg/dl (8.5-10.1) Total Bilirubin 0.5 mg/dl (0.2-1) Direct Bilirubin 0.2 mg/dl (0-0.2) Aspartate Amino Transf (AST/SGOT) 27 U/L (15-37) Alanine Aminotransferase (ALT/SGPT) 41 U/L (12-78) Alkaline Phosphatase 132 U/L (45-117) Total Protein 7.3 gm/dl (6.4-8.2) Albumin 3.5 gm/dl (3.4-5.0) Lipase 113 U/L (73-393) Chemistry Specimen Hemolysis Medications Administered Medications (Trade) Dose Ordered Sig/June Route Start Time Stop Time Status Last Admin Dose Admin Morphine Sulfate (MoRPHine SULFATE INJ) 4 mg ONE STAT IV 06/03/17 11:50 06/03/17 11:51 DC 06/03/17 12:16 4 MG Ondansetron HCl (Zofran Inj) 4 mg NOW STAT IV 06/03/17 11:50 06/03/17 11:51 DC 06/03/17 12:16 4 MG Ketorolac Tromethamine (Toradol Inj) 10 mg NOW STAT IV 06/03/17 13:51 06/03/17 13:52 DC 06/03/17 14:36 10 MG ED Course 1144: The patient was evaluated in room C1B. A complete history and physical exam was performed. 1150: Ordered Zofran Inj 4 mg IV, Morphine Sulfate 4 mg IV. 1351: Ordered Toradol Inj 10 mg IV. 1406: I reevaluated the patient and she is resting comfortably. I discussed the exam findings with her and I discussed the treatment plan. She verbalized complete understanding and agreement. She is ready to go home. Medical Decision This is a 51-year-old female presents with left-sided flank pain with bilateral hip pain. Differential diagnosis includes kidney stone, strain, lumbar disc disease, radiculopathy, arthritis, diverticulitis. I did perform a limited focused review of portions of the patient's old chart on the electronic medical record. The patient has had no recent pertinent visits to this hospital. Blood Pressure Screening: Patient was found to have an elevated blood pressure and was referred to their primary doctor for recheck and further treatment. Medication Reconciliation: I attest that I have personally reviewed the patient' s current medication list. I did evaluate the patient as noted above. The patient is presenting with left- sided flank pain. She also has had a little hip pain for months. She has no signs of septic arthritis or infection to her hips. She is neurologically intact. IV access was established. I did treat her with IV morphine and Zofran. I did order and personally review the patient's urinalysis as described above. She has chronic hematuria without signs of infection. I did order and review the patient's blood work as noted in the electronic medical record. I did order a CT of the abdomen and pelvis and lumbar spine. I did review the images myself as well as the radiology report as described above. There is no evidence of acute process in the abdomen or pelvis. I did order x- rays of her hips and pelvis. There is no evidence of acute abnormality. I did reassess the patient. She had some persistent pain and was given Toradol IV. I did discuss the test results with the patient and her . At this time the cause of her symptoms is unclear and I did recommend close follow up with her doctor. She was discharged with a prescription for oxycodone for breakthrough pain and was given precautions regarding this medication. She was given return instructions as outlined below. [place] Drug Monitoring Program Search Results: patient reviewed within database, no issues identified Impression Primary Impression: Left flank pain Additional Impression: Bilateral hip pain Scribe Attestation The scribe's documentation has been prepared under my direct and personally reviewed by me in its entirety. I confirm that the note above accurately reflects all work, treatment, procedures, and medical decision making performed by me. Departure Information Dispostion Home / Self-Care Prescriptions Oxycodone Ir (Roxicodone Ir) 5 Mg Tab 5 MG PO Q4H Y for Pain, #14 TAB Prov: Jerry Lambert M.D. 06/03/17 Referrals No Doctor, Assigned (PCP) Forms HOME CARE DOCUMENTATION FORM, IMPORTANT VISIT INFORMATION Patient Instructions ED Flank Pain Uncertain Cause, My [facility] Additional Instructions You have been examined and treated today on an emergency basis only. This is not a substitute for, or an effort to provide, complete comprehensive medical care. It is impossible to recognize and treat all injuries or illnesses in a single emergency department visit. It is therefore important that you follow up closely with your physician. Call as soon as possible for an appointment. Return for worsening symptoms or if you develop fever, vomiting, or any other concerning symptoms. Problem Qualifiers
== END 2017-06-03 15:06 | disposition home or self-care (01) ==
LOC: C.EDB 11:18 → C.EDC 15:06
DX: R10.9 Unspecified abdominal pain (principal); M25.551 Pain in right hip; M25.552 Pain in left hip; R31.9 Hematuria, unspecified; E78.5 Hyperlipidemia, unspecified; Z98.818 Other dental procedure status; Z83.3 Family history of diabetes mellitus; Z82.49 Family history of ischemic heart disease and other diseases of the circulatory system; Z84.1 Family history of disorders of kidney and ureter; Z79.899 Other long term (current) drug therapy

== ENCOUNTER → 2017-06-08 | Outpatient (CLI) | payer OTHER ==
[~2017-06-08] MED LIST changes: -BLADDER PILL PO; -CHOL100010 PO; +CHOL100041 PO; +MIRA1TAB3 PO; -MYRBETRIQ PO; +OXYC1TAB3 PO; +PENT100C6 PO
--- NOTE | 2017-06-08 08:56 | Discharge Instructions ---
Discharge Instructions Procedure Procedure Date: Jun 08, 2017. Reason for visit: Left Mass. Discharge Discharge Date: Jun 08, 2017. Discharge Diagnosis: post left breast ultrasound guided core biopsy Instructions Activity Recommendations: Additional Limitations (see below) Return to School/Work: no limitations Recommended Home Diet: No Limitations Provider Instructions: ACTIVITY RECOMMENDATIONS: * No lifting, pushing, pulling or exercising the affected side for three days. RETURN TO SCHOOL/WORK: * You may return to work/school after the procedure, but do not perform any strenuous activities for 24 to 48 hours. MEDICATIONS: * Tylenol (two 325 mg) every four to six hours if needed for mild pain (if not allergic to Tylenol). DIET: * Resume previous diet. SPECIAL CARE INSTRUCTIONS: * Keep biopsy site dry for 24 hours. May shower after 24 hours, but do not soak (bathe) incision. * May remove Tegaderm (plastic patch) tomorrow AFTER showering. * Leave the steri-strips on for one week. Allow the steri-strips to fall off by themselves. If not off after one week, you may remove them. You may place a Bandaid crosswise over the strips, if desired. * Apply ice 10 minutes on and 10 minutes off as needed. * Wear a bra at bedtime to sleep more comfortably for 2-3 days. * Your referring physician should have the results after approximately 5 to 7 business days. * Call for unusual bleeding, fever, drainage, etc or if you have any questions call [phone] during normal business hours or after hours call Dr Silva, . FOLLOW UP VISIT: Follow-up with Referring Physician as scheduled. Allergies Coded Allergies: Sulfa Drugs (Verified Allergy, Severe, GOES ALMOST BLIND, 06/03/17) Iodinated Contrast Media (Verified Allergy, Intermediate, HIVES/ITCHING, BIG LUMPS/WELTS, 06/03/17) RECEIVED MEDROL PRIOR TO EXAM 12/28/12 PT WAS SCANNED IN 2008. APPROX 10 MINUTES AFTER THE INJECTION SHE DEVELOPED HIVES, WELTS AND ITCHING ON HER BACK. KISHORE Mack Recommendations: Call your doctor if: * Temperature above 101 degrees * Pain not relieved by pain medicine ordered * There is increased drainage or redness from any incision * You have any unanswered questions or concerns. Your Doctors Instructions noted above were prepared by provider Emeli Silva. Patient Signature Section: Patient Instructions Signature Page Mounika Sullivan Patient (or Guardian) Signature/Date: I have read and understand the instructions given to me by my caregivers. Caregiver/RN/Doctor Signature/Date: The above-named patient and/or guardian has received patient instructions on this date. + Original Patient Signature Page (only) stays with chart. Please make copy for patient.
--- NOTE | 2017-06-08 12:11 | MAMMOGRAPHY REPORT ---
UNILATERAL LEFT DIGITAL DIAGNOSTIC MAMMOGRAM TOMOSYNTHESIS: 06/08/2017 CLINICAL HISTORY: Status post ultrasound-guided core biopsy of a small hypoechoic solid versus cystic mass in the 1:00 left breast, 10 cm from the nipple. Please refer to the report from left breast ultrasound guided core biopsy performed at the same time for full detail. IMPRESSION: POST PROCEDURE IMAGING FOR MARKER PLACEMENT Please refer to the report from left breast ultrasound guided core biopsy performed at the same time for full detail. Approximately 10% of breast cancers are not detected with mammography. A negative mammographic report should not delay biopsy if a clinically suggestive mass is present. Emeli Silva M.D. ay/:06/08/2017 08:52:36 Manufacturing Clerk: Bouchra HERRERA(R)(M), [facility] BI-RADS Code: Post Procedure Imaging For Marker Placement
--- NOTE | 2017-06-08 15:41 | MAMMOGRAPHY REPORT ---
THIS REPORT HAS BEEN AMENDED. ULTRASOUND GUIDED BIOPSY LEFT BREAST: 06/08/2017 CLINICAL HISTORY: Small indeterminate 2 mm solid versus cystic mass in the 1:00 left breast, thought to correlate with a focal mammographic asymmetry in the upper outer posterior breast. Patient presen ts for ultrasound-guided core biopsy. COMPARISON: Comparison is made to exams dated: 05/29/2017 ultrasound, 05/29/2017 mammogram, 05/17/2017 mammogram, 05/16/2016 mammogram, 05/13/2015 mammogram, and 05/12/2014 mammogram - [facility]. PATIENT CONSENT: The procedure, risks and benefits were discussed with the patient and informed writt en consent was obtained. Specific risks to this procedure include: bleeding, infection, puncture of a djacent structure, nontarget biopsy, sampling air, metal allergy, pain and medication reaction. PROCEDURE DESCRIPTION: A time out was performed and the left breast was agreed as the site of biopsy. The skin was prepped and draped in the usual sterile fashion. The 2 mm hypoechoic solid versus cysti c mass in the 1:00 left breast was chosen as the target for biopsy. Subcutaneous and intraparenchymal 1% buffered lidocaine, with and without epinephrine, was administered as local anesthesia. A skin in cision was made. Through the incision, 2 samples were taken with a 12 gauge Celero biopsy device. T he small mass was nearly sampled to entirety after the first pass. A metallic marker was placed at t he biopsy site. Hemostasis was achieved after manual compression. The patient tolerated the procedure well and there was no immediate complication. The samples were sent to the pathology department in an appropriately labeled container. Post procedure left CC and ML tomosynthesis images were obtained. There is a new metallic biopsy mar ker clip in the 1:00 posterior left breast. However, the biopsy marker clip does not correlate with the nodular mammographic asymmetry. When comparing back to all available prior mammograms, the nodul ar asymmetry on the MLO views appear very similar dating back to the 2012, and 2010 exams, suggesting benignity. Nevertheless, a short interval follow-up left diagnostic mammogram and possible repeat u ltrasound is recommended to ensure stability in 6 months. COMPARISON: Comparison is made to exams dated: 05/29/2017 ultrasound, 05/29/2017 mammogram, 05/17/2017 mammogram, 05/16/2016 mammogram, 05/13/2015 mammogram, and 05/12/2014 mammogram - [facility]. An ultrasound guided biopsy using real-time ultrasound was performed for the abnormality located in t he left breast at 1 o'clock posterior depth. The skin was prepped in the usual manner. A biopsy nee dle was placed adjacent to the abnormality under ultrasound guidance. Once the needle was documented to be in the correct location, a specimen was obtained using an automated biopsy gun. The specimen was sent to the laboratory for pathological analysis. IMPRESSION: ULTRASOUND GUIDED BIOPSY 1. Status post ultrasound-guided biopsy to resolution of a small hypoechoic solid versus cystic mass in the 1:00 left breast. 2. The biopsy marker clip does not align with the nodular asymmetry in question and therefore a shor t interval follow-up diagnostic mammogram and possible repeat ultrasound is recommended to ensure sta bility in 6 months. These may recommendations were discussed with the patient after the biopsy on 06/08/2017. The patien t will receive notification of the biopsy results from her referring physician. Emeli Silva M.D. ay/:06/08/2017 12:26:56 Attending Technologist: Dr. Emeli Silva, [facility] Cashier Manager: Bouchra HERRERA(R)(M), [facility] AMENDMENT: 06/16/2017 Emeli Silva M.D. Pathology results from the ultrasound-guided core biopsy of a small circumscribed hypoechoic mass in the 1:00 left breast yielded benign breast tissue. Sections reveal benign breast tissue consisting of unremarkable ductal and lobular elements set within fibrous and fatty stroma. A single small appa rent cyst is noted towards the periphery of one of the cores measuring 1 mm. No papillary proliferat ion is identified. No DCIS or malignancy is seen. The pathology results are concordant with the sowmya ging appearance. Given that the biopsy marker clip did not align with the nodular mammographic asymm etry in question, a short interval follow-up diagnostic left mammogram and possible ultrasound is rec ommended in 6 months.
== END | disposition home or self-care (01) ==
LOC: C.MAMM 08:09
PROVIDERS: ATTEND Obstetrics & Gynecology
DX: N63 Unspecified lump in breast (principal)

== ENCOUNTER → 2017-08-02 | Outpatient (CLI) | payer OTHER ==
--- NOTE | 2017-08-02 14:22 | MAMMOGRAPHY REPORT ---
UNILATERAL RIGHT DIGITAL DIAGNOSTIC MAMMOGRAM AND TARGETED RIGHT ULTRASOUND: 08/02/2017 CLINICAL HISTORY: The patient reports a palpable lump in her right axilla which is intermittently ten otis. TECHNIQUE: Spot compression right MLO view was obtained. COMPARISON: Comparison is made to exams dated: 05/17/2017 mammogram, 05/16/2016 mammogram, 05/13/2015 m ammogram, 05/12/2014 mammogram, 05/08/2013 mammogram, and 05/07/2012 mammogram - [facility] enter. BREAST COMPOSITION: There are scattered areas of fibroglandular density in the right breast. FINDINGS: A triangle marker was placed at the site of the palpable lump and a right MLO spot compress ion view was obtained. No suspicious masses or other suspicious mammographic abnormalities are seen in this region. Targeted ultrasound was performed of the tender palpable lump in the right axilla pointed out by the patient. Sonographically normal tissue is seen in this region, without evidence of a mass or other s uspicious sonographic abnormality. An incidental morphologically normal right axillary lymph node is seen, measuring 1.4 cm. IMPRESSION: ACR BI-RADS CATEGORY 2: BENIGN, TARGETED ULTRASOUND ACR BI-RADS CATEGORY 2: BENIGN No suspicious mammographic or sonographic abnormality at the site of the tender palpable right axilla ry lump. There is no mammographic or targeted sonographic evidence of malignancy. Recommend clinica l follow-up for the right axillary lump. Additionally, the patient is due for follow-up left mammogr ams and ultrasound in November. The patient has been verbally notified of the results. Approximately 10% of breast cancers are not detected with mammography. A negative mammographic report should not delay biopsy if a clinically suggestive mass is present. Amee Brandon M.D. /:08/02/2017 08:39:04 Rim Turning Machine Operator: Yola HERRERA(Siobhan)(Collette), [facility] letter sent: Normal 1/2 BI-RADS Code: ACR BI-RADS Category 2: Benign Ultrasound BI-RADS: ACR BI-RADS Category 2: Benign
== END | disposition home or self-care (01) ==
LOC: C.MAMM 08:05
PROVIDERS: ATTEND Obstetrics & Gynecology
DX: N63 Unspecified lump in breast (principal)

== ENCOUNTER → 2017-08-08 | Outpatient (CLI) | payer OTHER ==
--- NOTE | 2017-08-08 08:25 | DIAGNOSTIC IMAGING REPORT ---
(BARIUM SWALLOW) ESOPHAGUS CLINICAL HISTORY: Dysphagia. COMPARISON STUDY: None. FLUOROSCOPY TIME: 0.9 minutes. FINDINGS: 27 fluoroscopic images were obtained. Esophageal motility was normal. No esophageal mass or stricture was identified. A 13 mm barium tablet passed into the stomach. Mild gastroesophageal reflux was noted. No hiatal hernia was identified. IMPRESSION: 1. No esophageal mass or stricture. 2. Mild gastroesophageal reflux. Electronically signed by: Dhiraj Burgess M.D. 08/08/2017 8:24 AM Dictated Date/Time: 08/08/2017 8:22 AM
== END | disposition home or self-care (01) ==
LOC: C.RAD 07:31
PROVIDERS: ATTEND Family Medicine
DX: R13.10 Dysphagia, unspecified (principal)

== ENCOUNTER → 2017-12-12 | Outpatient (CLI) | payer OTHER ==
[~2017-12-12] MED LIST changes: -OXYC1TAB3 PO
--- NOTE | 2017-12-12 14:39 | MAMMOGRAPHY REPORT ---
UNILATERAL LEFT DIGITAL DIAGNOSTIC MAMMOGRAM TOMOSYNTHESIS WITH CAD AND TARGETED LEFT ULTRASOUND: 11/21 CLINICAL HISTORY: 52-year-old woman presents for follow-up in the left breast. She is 6 months statu s post benign ultrasound-guided core biopsy in the 1:00 axis which yielded benign pathology results. However, the body marker clip did not align with the small 3.8 mm nodular asymmetry seen in the late ral, middle to posterior breast on the CC view, and therefore the patient presented for follow-up. A lso reassess a benign-appearing 5 mm circumscribed oval mass in the medial left breast, without sonog raphic correlate. TECHNIQUE: Left breast tomosynthesis in addition to standard 2D mammography was performed. Current st udy was also evaluated with a Computer Aided Detection (CAD) system. COMPARISON: Comparison is made to exams dated: 06/08/2017 mammogram, 05/29/2017 ultrasound, 05/29/2017 mammogram, 05/17/2017 mammogram, 05/16/2016 mammogram, and 05/13/2015 mammogram - [facility]. BREAST COMPOSITION: The tissue of the left breast is almost entirely fatty. FINDINGS: There is a stable ribbon-shaped biopsy marker clip in the upper outer middle one third of t he left breast, at the site of prior benign ultrasound-guided core biopsy. A previously observed 3.8 mm nodular asymmetry in the lateral posterior breast in the CC projection is less prominent on the c urrent 2-D view and there is no definite persistent mass or architectural distortion on the correspon ding tomosynthesis images. Additionally in the MLO projection, a nodular asymmetry in the far superi or aspect of the breast effaces and is less conspicuous, confirming benignity. There is a persistent oval circumscribed 5.3 mm mass in the lower inner middle one third of the left breast, which appears stable since the 05/17/2017 mammograms, and also likely stable dating back to 05/16/2016. Further e valuation with ultrasound was again performed. No other new suspicious masses, asymmetries, calcific ations or areas of architectural distortion are identified in the left breast. Targeted ultrasound was performed in the medial left breast, with particular attention to the 8:00, 9 :00 and 10:00 axes. Sonographically normal tissue is seen without a discrete solid or cystic mass. Given nearly 2 years of stability of this benign-appearing circumscribed oval mass it is most likely benign although no sonographic correlate was identified. Another six-month follow-up diagnostic magda synthesis mammogram is recommended to ensure at least 2 years of stability to confirm benignity. IMPRESSION: ACR-BI-RADS CATEGORY 3: PROBABLY BENIGN, TARGETED ULTRASOUND ACR-BI-RADS CATEGORY 3: PRO BABLY BENIGN 1. Stable postbiopsy changes in the 1:00 left breast, with ribbon-shaped biopsy marker clip in place . 2. A nodular asymmetry in the upper outer posterior left breast is less prominent in both the CC and MLO projections, confirming benignity. 3. There is a stable circumscribed oval 5.3 mm mass in the medial approximate 9:00 middle one third of the left breast, for which no sonographic correlate was identified although this mass appears stab le on prior mammograms for approximately 18 months. Another six-month follow-up left diagnostic magda synthesis mammogram and possible ultrasound is recommended to ensure at least 2 years of mammographic stability to confirm benignity. Annual right mammography will also be due at that time. These results and recommendations were discussed with the patient at the time of the exam. Approximately 10% of breast cancers are not detected with mammography. A negative mammographic report should not delay biopsy if a clinically suggestive mass is present. Emeli Silva M.D. ay/:12/12/2017 12:47:01 Ncqa Specialist: Salma VALDERRAMA)(Collette), [facility] letter sent: Follow Up Recommended 3 BI-RADS Code: ACR-BI-RADS Category 3: Probably Benign Ultrasound BI-RADS: ACR-BI-RADS Category 3: Pr obably Benign
== END | disposition home or self-care (01) ==
LOC: C.MAMM 08:12
PROVIDERS: ATTEND Obstetrics & Gynecology
DX: Z08 Encounter for follow-up examination after completed treatment for malignant neoplasm (principal); N63.20 Unspecified lump in the left breast, unspecified quadrant

== ENCOUNTER → 2017-12-13 | Outpatient (CLI) | payer OTHER | END | disposition home or self-care (01) | LOC: C.LABSPEC 15:47 | PROVIDERS: ATTEND Obstetrics & Gynecology | DX: N89.8 Other specified noninflammatory disorders of vagina (principal) ==

== ENCOUNTER 2017-12-31 05:32 | Emergency (ER) | payer OTHER ==
[~2017-12-31] VITALS: Ht 160 cm; Wt 101.4 kg
[2017-12-31 05:40] VITALS: TEMP 36.6; Ht 160 cm; Wt 101.4 kg
[2017-12-31] MEDS ORDERED: ALBUT/IPRATROP 3MG/0.5MG NEB 3 ML VIAL INH STA (05:51)
[2017-12-31] MEDS ORDERED: SODIUM CHLORIDE 0.9% 1000ML 1,000 ML IV STA (05:51)
--- NOTE | 2017-12-31 05:57 | EMERGENCY ROOM VISIT NOTE ---
History First contact with patient: 05:44 Chief Complaint: FLU LIKE SX Stated Complaint: DIZZY,BODY ACHES,WEAKNESS,NAUSEA History of Present Illness The patient is a 52 year old female who presents to the Emergency Room for evaluation of flu like symptoms. Symptoms started 5 days ago. Associated fevers, chills, body aches, cough, congestion, headaches, fatigue, lack of appetite, lack of energy and some nausea. Gradually worsening. Mother with similar symptoms who was coming in to ED so she felt she should be checked as well. Taking no mediations for this. Standing and walking around makes worse, rest makes better. No syncope, cp, shob, vomiting, diarrhea, leg swelling, rashes nor other symptoms. She has chronic bilateral thigh pain as well which she has not discussed with her PCP but has been ongoing for many months now. Admits thigh pain is worse and night and better after walking around. Denies calf pain. Denies significant smoking history (smoked for about 1 month many years ago). Review of Systems See HPI for pertinent positives & negatives. A total of 10 systems reviewed and were otherwise negative. Past Medical/Surgical History Medical Problems: (1) Hyperlipidemia Surgical Problems: (1) History of wisdom tooth extraction Family History Cancer Diabetes mellitus Hypertension Kidney stones Social History Smoking Status: Former Smoker Marital Status: Housing Status: lives with family Occupation Status: employed Current/Historical Medications Scheduled Azithromycin (Zithromax Z-Swapnil), 1 PKT PO UD Cholecalciferol (D 1000), 1,000 UNITS PO HS Citalopram Hydrobromide (Citalopram Hydrobromide), 20 MG PO HS Cyanocobalamin (Vitamin B12), 1,000 MCG PO HS Mirabegron (Myrbetriq Er), 25 MG PO DAILY Oseltamivir (Tamiflu), 75 MG PO BID Pantoprazole (Protonix), 40 MG PO QAM Prednisone (Prednisone), 50 MG PO DAILY Rosuvastatin Calcium (Rosuvastatin Calcium), 10 MG PO HS Scheduled PRN Sulindac (Sulindac), 150 MG PO BID PRN for Pain Physical Exam Vital Signs Date Time Temp Pulse Resp B/P (MAP) Pulse Ox O2 Delivery O2 Flow Rate FiO2 12/31/17 07:35 83 20 131/99 94 12/31/17 05:40 36.6 90 16 142/98 95 Room Air Physical Exam GENERAL: Patient is well appearing and in mild distress. HEENT: Bilateral rhinorrhea. No acute trauma, normocephalic atraumatic, mucous membranes moist, no nasal congestion, no scleral icterus. NECK: No stridor, no adenopathy, no meningismus, trachea is midline. LUNGS: Mild diffuse expiratory wheezing without decreased air movement otherwise. No dyspnea. Equal bilaterally. No wheeze, no rhonchi. HEART: Regular rate and rhythm. No murmurs, rubs, gallops appreciated. ABDOMEN: Soft, nontender, bowel sounds positive, no masses appreciated, no peritonitis. BACK: No midline tenderness, no CVA tenderness EXTREMITIES: Normal motion all extremities, no cyanosis, no edema. NEUROLOGIC: Alert and oriented, no acute motor or sensory deficits, no focal weakness, cranial nerves grossly intact. SKIN: No rash, no jaundice, no diaphoresis. Medical Decision & Procedures Laboratory Results 12/31/17 06:00 Red Blood Count 5.00, Mean Corpuscular Volume 85.2, Mean Corpuscular Hemoglobin 28.2, Mean Corpuscular Hemoglobin Concent 33.1, Mean Platelet Volume 9.2, Neutrophils (%) (Auto) 52.9, Lymphocytes (%) (Auto) 27.9, Monocytes (%) (Auto) 15.3, Eosinophils (%) (Auto) 3.6, Basophils (%) (Auto) 0.3, Neutrophils # (Auto ) 1.90, Lymphocytes # (Auto) 1.00, Monocytes # (Auto) 0.55, Eosinophils # (Auto ) 0.13, Basophils # (Auto) 0.01 12/31/17 06:00 Test 12/31/17 06:00 12/31/17 06:01 White Blood Count 3.59 K/uL (4.8-10.8) Red Blood Count 5.00 M/uL (4.2-5.4) Hemoglobin 14.1 g/dL (12.0-16.0) Hematocrit 42.6 % (37-47) Mean Corpuscular Volume 85.2 fL (80-100) Mean Corpuscular Hemoglobin 28.2 pg (25-34) Mean Corpuscular Hemoglobin Concent 33.1 g/dl (32-36) Platelet Count 179 K/uL (130-400) Mean Platelet Volume 9.2 fL (7.4-10.4) Neutrophils (%) (Auto) 52.9 % Lymphocytes (%) (Auto) 27.9 % Monocytes (%) (Auto) 15.3 % Eosinophils (%) (Auto) 3.6 % Basophils (%) (Auto) 0.3 % Neutrophils # (Auto) 1.90 K/uL (1.4-6.5) Lymphocytes # (Auto) 1.00 K/uL (1.2-3.4) Monocytes # (Auto) 0.55 K/uL (0.11-0.59) Eosinophils # (Auto) 0.13 K/uL (0-0.5) Basophils # (Auto) 0.01 K/uL (0-0.2) RDW Standard Deviation 45.0 fL (36.4-46.3) RDW Coefficient of Variation 14.5 % (11.5-14.5) Immature Granulocyte % (Auto) 0.0 % Immature Granulocyte # (Auto) 0.00 K/uL (0.00-0.02) Anion Gap 9.0 mmol/L (3-11) Est Creatinine Clear Calc Drug Dose 83.1 ml/min Estimated GFR () 84.1 Estimated GFR (Non- 72.6 BUN/Creatinine Ratio 22.5 (10-20) Calcium Level 8.9 mg/dl (8.5-10.1) Influenza Type A Antigen POS for Influ A (NEG) Influenza Type B Antigen Neg for Influ B (NEG) Medications Administered Medications (Trade) Dose Ordered Sig/June Route Start Time Stop Time Status Last Admin Dose Admin Sodium Chloride 1,000 ml @ 999 mls/hr Q1H1M STAT IV 12/31/17 05:51 12/31/17 06:51 DC 12/31/17 06:06 999 MLS/HR Albuterol/ Ipratropium (Duoneb) 3 ml NOW STAT INH 12/31/17 05:51 12/31/17 05:53 DC 12/31/17 06:06 3 ML Dexamethasone Sodium Phosphate (Dexamethasone Inj Pf) 10 mg NOW ONCE IV 12/31/17 06:00 12/31/17 06:01 DC 12/31/17 06:06 10 MG Albuterol (Ventolin Hfa Inhaler) 2 puffs NOW ONCE INH 12/31/17 07:15 2/11/18 07:16 DC 12/31/17 07:34 2 PUFFS Oseltamivir Phosphate (Tamiflu Cap) 75 mg NOW STAT PO 12/31/17 07:10 12/31/17 07:12 DC 12/31/17 07:34 75 MG Azithromycin (Zithromax Tab) 500 mg NOW ONCE PO 12/31/17 07:15 12/31/17 07:16 DC 12/31/17 07:35 500 MG Medical Decision Differential: Viral, Pharyngitis, Cellulitis, Pneumonia, Influenza, Meningitis, Sepsis, Bacteremia, UTI/Pyelonephritis, Endocrine, Toxicologic, amongst other pathologies entertained. 52 yr old female arrives with flu like illness. Mildly dehydrated and some wheezing. Feeling better and sounding much better post nebs. No history of asthma/copd/smoking. Suspect this is flu related. Bit concerned that this this ongoing for last 5 days and now with wheezing thus will treat with steroids /abx. As Flu + with wheezing issues does seem reasonable to start Tamiflu, but I do not feel that she meets criteria for admission at this time. She has no calf/lower leg pain/swelling nor history of DVTs and her thigh pain is not consistent with DVT. Suggested she discuss further work-up/evaluation of bilateral thigh pains with her PCP. Reviewed symptoms requiring RTED. Impression Primary Impression: Acute bronchitis Additional Impression: Influenza A Departure Information Dispostion Home / Self-Care Condition GOOD Prescriptions Azithromycin (ZITHROMAX Z-SWAPNIL) 250 Mg Tab 1 PKT PO UD, #1 PKT Prov: Jai Ralph M.D. 12/31/17 Prednisone (PREDNISONE) 50 Mg Tab 50 MG PO DAILY for 5 Days, #5 TAB Prov: Jai Ralph M.D. 12/31/17 Oseltamivir (Tamiflu) 75 Mg Cap 75 MG PO BID for 5 Days, #10 CAP Prov: Jai Ralph M.D. 12/31/17 Referrals Edin Pinto D.O. (PCP) Patient Instructions ED Flu, [facility] Health Problem Qualifiers
[2017-12-31] MEDS ORDERED: DEXAMETHASONE **PF** INJ 10 MG/ML VIAL IV ONE (06:00)
[2017-12-31] MEDS ORDERED: MIRA100T PO (06:19)
[2017-12-31] MEDS ORDERED: CLN150 PO (06:19)
[2017-12-31] MEDS ORDERED: ROSU10TA35 PO (06:19)
[2017-12-31 06:25] LABS: BASO % 0.3 %; BASO ABS # 0.01 K/uL (0-0.2); EOS % 3.6 %; EOS ABS # 0.13 K/uL (0-0.5); HEMATOCRIT 42.6 % (37-47); HEMOGLOBIN 14.1 g/dL (12.0-16.0); LYMPH % 27.9 %; MEAN CELL VOLUME 85.2 fL (80-100); MEAN CORPUSCULAR HEMOGLOBIN 28.2 pg (25-34); MEAN CORPUSCULAR HGB CONC 33.1 g/dl (32-36); MEAN PLATELET VOLUME 9.2 fL (7.4-10.4); MONO % 15.3 %; MONO ABS # 0.55 K/uL (0.11-0.59); NEUT % 52.9 %; PLATELET COUNT 179 K/uL (130-400); RED CELL DISTRIBUTION WIDTH CV 14.5 % (11.5-14.5); WHITE BLOOD COUNT 3.59 K/uL (4.8-10.8)
--- NOTE | 2017-12-31 06:26 | DIAGNOSTIC IMAGING REPORT ---
CHEST ONE VIEW PORTABLE CLINICAL HISTORY: Cough, SHOB dyspnea COMPARISON STUDY: 06/01/2016 FINDINGS: The bones soft tissues and hemidiaphragms are normal. The cardiomediastinal silhouette is normal. The lungs are clear. The pulmonary vasculature is normal. IMPRESSION: Negative chest. The above report was generated using voice recognition software. It may contain grammatical, syntax or spelling errors. Electronically signed by: Shane Cedeño M.D. 12/31/2017 6:24 AM Dictated Date/Time: 12/31/2017 6:24 AM
[2017-12-31 06:41] LABS: CALCIUM 8.9 mg/dl (8.5-10.1); CREATININE 0.92 mg/dl (0.60-1.20); POTASSIUM 3.6 mmol/L (3.5-5.1)
[2017-12-31 07:02] LABS: INFLUENZA B ANTIGEN Neg for Influ B (NEG)
[2017-12-31] MEDS ORDERED: PRED50TA PO (07:10)
[2017-12-31] MEDS ORDERED: OSELTAMIVIR PHOSPHATE 75 MG CAP PO STA (07:10)
[2017-12-31] MEDS ORDERED: OSEL75CA12 PO (07:10)
[2017-12-31] MEDS ORDERED: AZITTAB PO (07:10)
[2017-12-31] MEDS ORDERED: ALBUTEROL HFA 8 GM INHALER INH ONE (07:15)
[2017-12-31] MEDS ORDERED: AZITHROMYCIN 250 MG TAB PO ONE (07:15)
[2017-12-31 07:35] VITALS: BP 131/99; PULSE 83; O2SAT 94
== END 2017-12-31 07:36 | disposition home or self-care (01) ==
LOC: C.EDB 05:34
DX: J20.9 Acute bronchitis, unspecified (principal); J11.1 Influenza due to unidentified influenza virus with other respiratory manifestations; E78.5 Hyperlipidemia, unspecified; M79.651 Pain in right thigh; M79.652 Pain in left thigh; G89.29 Other chronic pain; Z87.891 Personal history of nicotine dependence; Z83.3 Family history of diabetes mellitus; Z82.49 Family history of ischemic heart disease and other diseases of the circulatory system; Z84.1 Family history of disorders of kidney and ureter

== ENCOUNTER → 2018-02-27 | Day surgery (SDC) | payer OTHER ==
[2018-02-13 08:08] VITALS: BMI 40.0
[~2018-02-27] VITALS: Ht 160 cm; Wt 103.2 kg
[~2018-02-27] MED LIST changes: -ATOR-24 PO; +CLN150 PO; +IBUP1TAB51 PO; +LIDOCAINE HCL 2% 2 ML VIAL (20MG/ML) ONE; +MIRA100T PO; -MIRA1TAB3 PO; -PENT100C6 PO; +PROPOFOL IV EMULSION 10 MG/ML 20 ML VIAL IV ONE; +ROPI0.5T15 PO; +ROSU10TA35 PO; +SODIUM CHLORIDE 0.9% 500ML 500 ML IV ONE
[2018-02-27 11:04] VITALS: Ht 160 cm; Wt 103.2 kg
--- NOTE | 2018-02-27 11:05 | Endo History and Physical ---
History & Physical Date of Service: Feb 27, 2018. Chief Complaint: Screening Referring Physician: Edin Pinto History of Present Illness 52 yo CF who presents for screening colonoscopy. Past Surgical History Hx Cardiac Surgery: No Hx Internal Defibrillator: No Hx Pacemaker: No Hx Abdominal Surgery: Yes (UTERINE ABLATION) Hx of Implantable Prosthesis: No Hx Post-Op Nausea and Vomiting: No Hx Cancer Surgery: No Hx Thoracic Surgery: No Hx Orthopedic: No Hx Urinary Tract Surgery: Yes (BLADDER SURGERY (BALLOON?)) Family History Polyp, IBD Social History Smoking Status: Never Smoker Hx Substance Use: No Hx Alcohol Use: No Allergies Coded Allergies: Sulfa Drugs (Verified Allergy, Severe, GOES ALMOST BLIND, 02/13/18) Iodinated Contrast Media (Verified Allergy, Intermediate, HIVES/ITCHING, BIG LUMPS/WELTS, 02/13/18) RECEIVED MEDROL PRIOR TO EXAM 12/28/12 PT WAS SCANNED IN 2008. APPROX 10 MINUTES AFTER THE INJECTION SHE DEVELOPED HIVES, WELTS AND ITCHING ON HER BACK. KAF Uncoded Allergies: DUST MITES (Allergy, Unknown, ITCHING, 02/13/18) Current Medications Reported Home Medications Medications Dose Route/Sig Max Daily Dose Days Date Category Requip (Ropinirole HCl) 0.5 Mg Tab 0.5 Mg PO HS 02/13/18 Reported Duexis (Ibuprofen-Famotidine) 1 Tab Tab 1 Tab PO TID 02/13/18 Reported Myrbetriq Er (Mirabegron) 25 Mg Tab 25 Mg PO QAM 12/31/17 Reported Rosuvastatin Calcium 10 Mg Tab 10 Mg PO HS 12/31/17 Reported Sulindac 150 Mg Tab 150 Mg PO BID PRN 12/31/17 Reported D 1000 (Cholecalciferol) 1,000 Unit Cap 1,000 Units PO HS 06/03/17 Reported Protonix (Pantoprazole Sodium) 40 Mg Tab 40 Mg PO QAM 11/28/16 Reported Vitamin B12 (Cyanocobalamin) 1,000 Mcg Tab 1,000 Mcg PO HS 06/01/16 Reported Citalopram Hydrobromide 20 Mg Tab 20 Mg PO HS 02/18/16 Reported Vital Signs Weight (Kilograms): 103.18 Height (Feet): 5 Height (Inches): 3 Physical Exam General Appearance: WD/WN, no apparent distress Respiratory/Chest: Auscultation: breath sounds normal Cardiovascular: Heart Auscultation: RRR Abdomen: Bowel Sounds: normal Inspection & Palpation: soft, non-distended, no tenderness, guarding & rebound Assessment and Plan Assessment: 52 yo CF who presents for screening colonoscopy. Plan: Proceed with colonoscopy.
--- NOTE | 2018-02-27 12:16 | GI REPORT ---
Procedure Date: 02/27/2018 11:10 AM Procedure: Colonoscopy Indications: Screening for colorectal malignant neoplasm Medicines: Monitored Anesthesia Care Complications: No immediate complications. Estimated Blood Loss: Estimated blood loss: none. Procedure: Pre-Anesthesia Assessment: - Prior to the procedure, a History and Physical was performed, and patient medications and allergies were reviewed. The patient's tolerance of previous anesthesia was also reviewed. The risks and benefits of the procedure and the sedation options and risks were discussed with the patient. All questions were answered, and informed consent was obtained. Prior Anticoagulants: The patient has taken no previous anticoagulant or antiplatelet agents. ASA Grade Assessment: II - A patient with mild systemic disease. After reviewing the risks and benefits, the patient was deemed in satisfactory condition to undergo the procedure. After I obtained informed consent, the scope was passed under direct vision. Throughout the procedure, the patient's blood pressure, pulse, and oxygen saturations were monitored continuously. The scope was introduced through the anus and advanced to the terminal ileum. The colonoscopy was performed without difficulty. The patient tolerated the procedure well. The quality of the bowel preparation was good. The terminal ileum, ileocecal valve, appendiceal orifice, and rectum were photographed. Findings: The perianal and digital rectal examinations were normal. Non-bleeding internal hemorrhoids were found during retroflexion. The hemorrhoids were small. Impression: - Non-bleeding internal hemorrhoids. - No specimens collected. Recommendation: - Resume previous diet. - Continue present medications. - Repeat colonoscopy in 10 years for surveillance. - Return to primary care physician as previously scheduled. Juvenal Boyer DO 02/27/2018 12:15:52 PM This report has been signed electronically. Note Initiated On: 02/27/2018 11:10 AM I attest to the content of the Intraoperative Record and orders documented therein, exceptions below
--- NOTE | 2018-02-27 12:16 | Discharge Instructions ---
Endoscopy Patient Instructions Date / Procedure(s) Performed Feb 27, 2018. Colonoscopy Allergy Information Coded Allergies: Sulfa Drugs (Verified Allergy, Severe, GOES ALMOST BLIND, 02/13/18) Iodinated Contrast Media (Verified Allergy, Intermediate, HIVES/ITCHING, BIG LUMPS/WELTS, 02/13/18) RECEIVED MEDROL PRIOR TO EXAM 12/28/12 PT WAS SCANNED IN 2008. APPROX 10 MINUTES AFTER THE INJECTION SHE DEVELOPED HIVES, WELTS AND ITCHING ON HER BACK. KAF Uncoded Allergies: DUST MITES (Allergy, Unknown, ITCHING, 02/13/18) Discharge Date / Findings Feb 27, 2018. Internal hemorrhoids Medication Instructions OK to resume all medications today as prescribed Reported Home Medications Medications Dose Route/Sig Max Daily Dose Days Date Category Requip (Ropinirole HCl) 0.5 Mg Tab 0.5 Mg PO HS 02/13/18 Reported Duexis (Ibuprofen-Famotidine) 1 Tab Tab 1 Tab PO TID 02/13/18 Reported Myrbetriq Er (Mirabegron) 25 Mg Tab 25 Mg PO QAM 12/31/17 Reported Rosuvastatin Calcium 10 Mg Tab 10 Mg PO HS 12/31/17 Reported Sulindac 150 Mg Tab 150 Mg PO BID PRN 12/31/17 Reported D 1000 (Cholecalciferol) 1,000 Unit Cap 1,000 Units PO HS 06/03/17 Reported Protonix (Pantoprazole Sodium) 40 Mg Tab 40 Mg PO QAM 11/28/16 Reported Vitamin B12 (Cyanocobalamin) 1,000 Mcg Tab 1,000 Mcg PO HS 06/01/16 Reported Citalopram Hydrobromide 20 Mg Tab 20 Mg PO HS 02/18/16 Reported Provider Instructions Activity Restrictions - No exercising or heavy lifting for 24 hours. - Do not drink alcohol the day of the procedure. - Do not drive a car or operate machinery until the day after the procedure. - Do not make any important decisions or sign important papers in 24 hours after the procedure. Following Day: - Return to full activity which may include returning to work/school. Diet Start your diet with liquids and light foods (jello, soup, juice, toast). Then eat your usual diet if not nauseated. Treatment For Common After Affects For mild abdominal pain, bloating, or excessive gas: - Rest - Eat lightly - Lie on right side Follow-Up Information Follow-up with DR. MARTÍNEZ as scheduled Anesthesia Information What You Should Know You have had a procedure that required some medicine to reduce anxiety and discomfort. This treatment is called moderate sedation. After receiving the treatment, you may be sleepy, but you will be able to breathe on your own. The effects of the treatment may last for several hours. Follow these instructions along with Activity/Diet recommendations noted above: * Do NOT do anything where dizziness or clumsiness would be dangerous. * Rest quietly at home today, then you can be up and about tomorrow. * Have a responsible person stay with you the rest of today. * You may have had an I.V. today. If so, you may take the dressing off later today. Recommendations Call your doctor if: * Trouble breathing * Continuous vomiting for more than 24 hours * Temperature above 101 degrees * Severe abdominal pain or bloating * Pain not relieved by pain medicine ordered * There is increased drainage or redness from any incision * A large amount of rectal bleeding greater than 2-3 tablespoons. (If you had a polyp/s removed or have hemorrhoids, a small amount of blood - from the rectum is to be expected.) * You have any unanswered questions or concerns. IN THE EVENT OF A SERIOUS EMERGENCY, GO TO THE NEAREST EMERGENCY ROOM Your discharge instructions were prepared by provider Juvenal Boyer. Patient Instructions Signature Page Mounika Sullivan Patient (or Guardian) Signature/Date: I have read and understand the instructions given to me by my caregivers. Caregiver/RN/Doctor Signature/Date: The above-named patient and/or guardian has received patient instructions on this date. + Original Patient Signature Page (only) stays with chart. Please make copy for patient.
[2018-02-27 12:40] VITALS: BP 139/89; PULSE 71; O2SAT 100
--- NOTE | 2018-02-27 14:46 | Anesthesiology Progress Note ---
Anesthesia Post Op Note Date & Time Feb 27, 2018 at 14:46 Vital Signs Pain Intensity: 0 Vital Signs Past 12 Hours Date Time Temp Pulse Resp B/P (MAP) Pulse Ox O2 Delivery O2 Flow Rate FiO2 02/27/18 12:40 71 16 139/89 (106) 100 Room Air 02/27/18 12:25 73 16 129/92 (104) 99 Room Air 02/27/18 12:10 80 16 101/54 (70) 97 Room Air 02/27/18 11:08 36.8 85 20 148/99 (115) 100 Room Air Notes Mental Status: alert / awake / arousable, participated in evaluation Pt Amnestic to Procedure: Yes Nausea / Vomiting: adequately controlled Pain: adequately controlled Airway Patency, RR, SpO2: stable & adequate BP & HR: stable & adequate Hydration State: stable & adequate Anesthetic Complications: no major complications apparent
== END | disposition home or self-care (01) ==
LOC: C.GI 10:19
PROVIDERS: ATTEND Internal Medicine
DX: Z12.11 Encounter for screening for malignant neoplasm of colon (principal); K64.8 Other hemorrhoids; Z83.71 Family history of colonic polyps; K58.9 Irritable bowel syndrome, unspecified; Z88.2 Allergy status to sulfonamides; Z91.041 Radiographic dye allergy status; Z91.048 Other nonmedicinal substance allergy status; I10 Essential (primary) hypertension; E78.5 Hyperlipidemia, unspecified; K21.9 Gastro-esophageal reflux disease without esophagitis; M19.90 Unspecified osteoarthritis, unspecified site; F41.9 Anxiety disorder, unspecified; F32.9 Major depressive disorder, single episode, unspecified; G25.81 Restless legs syndrome

== ENCOUNTER → 2018-06-13 | Outpatient (CLI) | payer OTHER ==
[~2018-06-13] MED LIST changes: -LIDOCAINE HCL 2% 2 ML VIAL (20MG/ML) ONE; -PROPOFOL IV EMULSION 10 MG/ML 20 ML VIAL IV ONE; +ROSU10TA26 PO; -ROSU10TA35 PO; -SODIUM CHLORIDE 0.9% 500ML 500 ML IV ONE
--- NOTE | 2018-06-14 07:56 | MAMMOGRAPHY REPORT ---
BILATERAL DIGITAL DIAGNOSTIC MAMMOGRAM TOMOSYNTHESIS WITH CAD AND TARGETED LEFT ULTRASOUND: 06/13/2018 CLINICAL HISTORY: Six-month follow-up of left breast mass. The patient reports no new lumps or other new complaints. TECHNIQUE: The study was acquired using full field digital technology and interpreted from soft copy. Breast tomosynthesis in addition to standard 2D mammography was performed. Current study was also ev aluated with a Computer Aided Detection (CAD) system. Bilateral CC and MLO 2D and tomosynthesis imag es were obtained. COMPARISON: Comparison is made to exams dated: 12/12/2017 mammogram, 08/02/2017 mammogram, 06/08/2017 m ammogram, 05/29/2017 mammogram, 05/17/2017 mammogram, and 12/12/2017 ultrasound - [facility]. BREAST COMPOSITION: The tissue of both breasts is almost entirely fatty. FINDINGS: Again noted is an oval circumscribed benign-appearing 6 mm mass within the left medial breast at appr oximately 9 to 10:00, not significantly changed compared to the November 2017 exam. The remainder of both breasts are stable compared to prior exams, without suspicious masses, calcifications, or areas of architectural distortion noted. A biopsy clip is again noted within the left upper outer quadrant . Small nodular asymmetry in the left lateral breast is stable compared to prior exams. A small asy mmetry in the left superior breast middle depth on the MLO view is stable to less prominent compared to prior exams including the 2010 and 2012 exams and is therefore considered benign. Targeted ultrasound was performed of the left medial breast in the region of the mammographic mass. In the left breast at 9:00, 6 cm from the nipple, there is an oval circumscribed anechoic mass which measures 6 x 3 mm in maximal extent. This corresponds with the mammographic mass and is consistent w ith a benign cyst. IMPRESSION: ACR BI-RADS CATEGORY 2: BENIGN, ULTRASOUND ACR BI-RADS CATEGORY 2: BENIGN Benign 6 mm cyst in the left 9:00 breast, which corresponds with the circumscribed mammographic mass. There is no mammographic or sonographic evidence of malignancy. A 1 year screening mammogram is rec ommended.(06/14/2019) The patient has been verbally notified of the results. Some breast cancers are not detected with mammography. A negative mammographic report should not abram y biopsy if a clinically suggestive mass is present. Amee Brandon M.D. ah/:06/13/2018 08:28:18 Animal Caregiver: RT Sudeep(R)(M), [facility] letter sent: Normal 11/21 OVERALL STUDY BIRADS: 2 Benign
== END | disposition home or self-care (01) ==
LOC: C.MAMM 07:44
PROVIDERS: ATTEND Obstetrics & Gynecology
DX: N60.02 Solitary cyst of left breast (principal)

== ENCOUNTER 2025-01-16 10:33 | Inpatient (IN) ==
--- NOTE | 2025-01-16 10:38 | Emergency Department Note ---
Impression & Plan Pain, rectal, Anemia, Hypokalemia, Hypomagnesemia, History of rectal cancer ED Provider Note NAME: GARFIELD CARRASCO AGE: 59 SEX: F : 1965 ARRIVES VIA: Walk-In INFORMANT: Patient, ED PROVIDER(S): Rigoberto Sanford MD CHIEF COMPLAINT: Rectal pain MEDICAL DECISION MAKING: Patient presents due to concern for worsening rectal pain and had already been discussed with her pain management/palliative specialist for admission. IV was established and blood work was obtained. Patient was ordered IV fentanyl. Blood work today shows a normal white count hemoglobin of 10.8 which is close to the patient's prior of 11.4. Patient does report that she has had some blood with wiping. Hypokalemia 3.3 hypocalcemia at 8.4. Upon reassessment the patient states that she did have improvement with regard to her abdominal pain. Chest x-ray unremarkable. I did speak the on-call hospitalist service Dr. Staples and the patient was admitted to the medicine service. Discussion w/ other healthcare providers: Dr. Staples inpatient medicine service Prior /Outside records reviewed: I reviewed a palliative care note of home earlier today from Kristin Haddad. Patient was seen for cancer related pain and it was recommended for admission related to her pain. Differential diagnosis: Patient reports that her last chemo was last week. They were avoiding any of her radiation treatments Diagnostics, as interpreted by me: ECG: None Cardiac monitoring: An order was placed for continuous cardiac monitoring. The monitor shows a rate of 95 with sinus rhythm. Patient was placed on pulse oximetry Medical decision rules: None Imaging studies: I informally interpreted the patient's chest x-ray does not show obvious pneumonia or pneumothorax with formal report to follow. HPI: Patient presents due to concern for worsening rectal pain. With known history of rectal cancer currently undergoing chemo and radiation treatment. Patient reports that she did have a fall last week and was seen here for there is issues as she did strike the right side of her chest at that time. The patient was concerned about may be an issue with her PICC line she does have some discomfort. No obvious swelling. Given the patient's worsening pain. The patient was seen by nurse practitioner Kristin Haddad today and was recommended for admission. The patient did take 2 oxy prior to arrival about 20 minutes. PAST MEDICAL HISTORY: See Below PAST SURGICAL HISTORY: See Below SOCIAL HISTORY: See Below HOME MEDICATIONS: See Below ALLERGIES: See Below VITALS: See Below PHYSICAL EXAMINATION: GENERAL: NAD, non-toxic. EYE EXAM: Normal conjunctiva. PERRL, no anisocoria and EOM's grossly intact w/o pain. OROPHARYNX: Moist mucus membranes, grossly normal dentition. NECK: Trachea midline, no stridor. Supple, no nuchal rigidity, no adenopathy, non-tender. No signs of meningismus. FROM of the neck with good chin to chest and neck extension. LUNGS: Clear to auscultation. Normal chest wall mechanics. HEART: NSR, no MRG. ABDOMEN: Abdomen soft, non-tender, no masses, no rebound or guarding. BACK: No CVA TTP. SKIN: No rashes and no bruising. UPPER EXTREMITIES: Upper extremities are grossly normal. LOWER EXTREMITIES: Grossly normal, no edema. NEURO EXAM: A&O x3, cranial nerves II-XII grossly intact, normal speech, moves all 4 extremities. 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) History of colon polyps Perimenopausal vasomotor symptoms Prediabetes Rectal bleeding Double vision Vitamin D deficiency Kidney stone Arthritis Cognitive complaints Cervicalgia Cervicogenic headache Vertigo (Acute) Morbid obesity (Acute) Mixed hyperlipidemia (Acute) Hypertension (Acute) Hiatal hernia (Acute) Hematuria, microscopic (Acute) Depression (Acute) Chronic sinusitis (Acute) Chronic insomnia (Acute) Leg swelling (Acute) Bilateral hip pain (Acute) Back pain (Chronic) Hyperlipidemia (Chronic) Medical History Rectal bleeding reason for upcoming colonoscopy History of kidney stones Prediabetes diet controlled Depression Hypertension Hyperlipidemia Slow to wake up after anesthesia Fibromyalgia Osteoarthritis DDD (degenerative disc disease) Urinary leakage just on occasion GERD (gastroesophageal reflux disease) Obesity 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 Maldonado 08-12-21 History of left breast biopsy benign History of endometrial ablation last menstrual period 2016 History of esophagogastroduodenoscopy (EGD) Hx of colonoscopy History of bladder surgery History of wisdom tooth extraction Family History Mother Arthritis COPD (chronic obstructive pulmonary disease) Hypertension Dyslipidemia Irritable bowel syndrome (IBS) Father Arthritis Diabetes Atrial fibrillation Hodgkin lymphoma Leukemia Squamous cell skin cancer Kidney disease Hypertension Dyslipidemia Stroke Cancer Heart disease Son No problems noted. Son No problems noted. Other Breast cancer Gallbladder disease Lung disease Denies family history of Ovarian cancer Prostate cancer Myocardial infarction Colorectal cancer Social History Smoking Status: Never smoker Second Hand Exposure: Yes (as kid); Do You Dip or Chew Tobacco: No; Hx Alcohol Use: No Hx Substance Use: No Preferred Language: American Communication Ability: Effective Visual Impairment: No Limitations Hearing Ability: Normal Advice Nurse Required: No Beliefs That Will Affect Care: None marital status: Current Living Situation: Family Current Living Situation Comment: 2 sons also live with pt current occupational status: employed 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 [employer] How many Children do You have: 2 Feels Safe at Home: Yes Childhood Exposure to Second-Hand Smoke: Yes Diet: regular Diet Comment: regular caffeine: Yes during the past year weight has: remained stable Dental Care, Regularly: Yes Physical Activity Frequency: Daily Seatbelt Use: always Sunscreen Use: No Assistive Devices: Glasses Allergies Allergies Allergy/AdvReac Type Severity Reaction Status Date / Time Sulfa (Sulfonamide Allergy Severe GOES Verified 01/06/25 09:14 Antibiotics) ALMOST BLIND Iodinated Contrast Media Allergy Intermediate HIVES/ITCHING, Verified 01/06/25 09:14 BIG LUMPS/WELTS house dust mite AdvReac Mild ITCHING Verified 01/06/25 09:14 Home Meds Home Medications Medication Instructions Recorded Confirmed citalopram 40 mg tablet 40 mg PO PM 10/16/24 01/16/25 duloxetine 60 mg capsule,delayed 60 mg PO UD 10/16/24 01/16/25 release levothyroxine 25 mcg tablet 25 mcg PO QAM 10/16/24 01/16/25 pravastatin 40 mg tablet 40 mg PO PM 10/16/24 01/16/25 acetaminophen 500 mg tablet 1,000 mg PO Q6H PRN Pain 12/30/24 01/16/25 (Tylenol Extra Strength) capecitabine 500 mg tablet (Xeloda) 1,800 mg PO UD 01/06/25 01/16/25 zinc acetate 50 mg (zinc) capsule 50 mg PO QAM 01/13/25 01/16/25 lidocaine HCl 4 % topical gel with 1 applic topical UD severe rectal 01/16/25 01/16/25 pump pain mupirocin calcium 2 % topical cream 1 applic topical UD 01/16/25 01/16/25 ondansetron 8 mg disintegrating 8 mg PO DIRECTED PRN n/v 01/16/25 01/16/25 tablet prochlorperazine maleate 10 mg 10 mg PO DIRECTED PRN n/v 01/16/25 01/16/25 tablet Previous Rx's Medication Instructions Recorded losartan 25 mg tablet 12.5 mg (1/2 x 25 mg) PO QAM #90 11/27/24 tabs nystatin 100,000 unit/gram topical 1 applic topical BID #60 grams 01/13/25 powder oxycodone 15 mg tablet 15 mg PO Q4H PRN severe cancer 01/16/25 pain 1 month #180 tabs Results & Data (ED) Vital Signs Vital Signs - 24 hr 01/16/25 10:34 01/16/25 11:49 01/16/25 11:54 Temperature 36.5 C Temperature Source Oral Pulse Rate 107 H 85 Pulse Rate [Apical] Pulse Rate from SpO2 Sensor 85 Respiratory Rate 18 20 Blood Pressure 125/85 Blood Pressure [Left Arm] Blood Pressure Mean 98 Blood Pressure Mean [Left Arm] Blood Pressure Position Sitting Pulse Oximetry 98 97 94 Oxygen Delivery Method Room Air Room Air Sepsis Recent Fever Within 48 Hours No Sepsis New/Unexplained Change in Mental Status No Sepsis Action Taken by Nursing No Action Required 01/16/25 12:00 01/16/25 12:00 01/16/25 12:00 Temperature Temperature Source Pulse Rate Pulse Rate [Apical] Pulse Rate from SpO2 Sensor Respiratory Rate Blood Pressure 130/81 130/81 130/81 Blood Pressure [Left Arm] Blood Pressure Mean 94 94 94 Blood Pressure Mean [Left Arm] Blood Pressure Position Pulse Oximetry Oxygen Delivery Method Sepsis Recent Fever Within 48 Hours Sepsis New/Unexplained Change in Mental Status Sepsis Action Taken by Nursing 01/16/25 12:03 01/16/25 12:10 01/16/25 12:22 Temperature Temperature Source Pulse Rate 87 86 Pulse Rate [Apical] Pulse Rate from SpO2 Sensor 87 Respiratory Rate 18 Blood Pressure 135/77 Blood Pressure [Left Arm] Blood Pressure Mean 90 Blood Pressure Mean [Left Arm] Blood Pressure Position Pulse Oximetry 95 Oxygen Delivery Method Sepsis Recent Fever Within 48 Hours Sepsis New/Unexplained Change in Mental Status Sepsis Action Taken by Nursing 01/16/25 12:30 01/16/25 12:42 01/16/25 12:45 Temperature Temperature Source Pulse Rate 79 76 Pulse Rate [Apical] Pulse Rate from SpO2 Sensor 77 75 Respiratory Rate 17 17 Blood Pressure 155/96 H Blood Pressure [Left Arm] Blood Pressure Mean 110 Blood Pressure Mean [Left Arm] Blood Pressure Position Pulse Oximetry 99 97 Oxygen Delivery Method Sepsis Recent Fever Within 48 Hours Sepsis New/Unexplained Change in Mental Status Sepsis Action Taken by Nursing 01/16/25 12:54 01/16/25 13:00 01/16/25 13:00 Temperature Temperature Source Pulse Rate 82 Pulse Rate [Apical] 78 Pulse Rate from SpO2 Sensor 82 Respiratory Rate 18 17 Blood Pressure 173/109 H Blood Pressure [Left Arm] 155/96 H Blood Pressure Mean 131 Blood Pressure Mean [Left Arm] 115 Blood Pressure Position Pulse Oximetry 96 97 Oxygen Delivery Method Room Air Sepsis Recent Fever Within 48 Hours Sepsis New/Unexplained Change in Mental Status Sepsis Action Taken by Nursing 01/16/25 13:15 Temperature Temperature Source Pulse Rate Pulse Rate [Apical] Pulse Rate from SpO2 Sensor Respiratory Rate Blood Pressure 197/104 H Blood Pressure [Left Arm] Blood Pressure Mean 123 Blood Pressure Mean [Left Arm] Blood Pressure Position Pulse Oximetry Oxygen Delivery Method Sepsis Recent Fever Within 48 Hours Sepsis New/Unexplained Change in Mental Status Sepsis Action Taken by Usp Medications Current Medication List: was personally reviewed by me Laboratory Data Attestation: I reviewed the patient's lab results. 01/16/25 11:05 01/16/25 11:05 Lab Results 01/16/25 Range/Units 11:05 WBC 5.41 (4.8-10.8) K/ul RBC 3.84 L (4.20-5.40) M/uL Hgb 10.8 L (12.0-16.0) g/dl Hct 32.8 L (37.0-47.0) % MCV 85.4 (80.0-100.0) fL MCH 28.1 (25.0-34.0) pg MCHC 32.9 (32.0-36.0) g/dL RDW Std Deviation 41.4 (36.4-46.3) fL RDW Coeff of Edith 16.5 H (11.5-14.5) % Plt Count 186 (130-400) K/uL MPV 8.0 L (9.4-12.4) fL Immature Gran % (Auto) 0.6 % Neut % (Auto) 84.3 % Lymph % (Auto) 3.5 % [place] % (Auto) 9.4 % Eos % (Auto) 1.8 % Baso % (Auto) 0.4 % Neut # (Auto) 4.56 (1.40-6.50) K/uL Lymph # (Auto) 0.19 L (1.20-3.40) K/uL [place] # (Auto) 0.51 (0.11-0.59) K/uL Eos # (Auto) 0.10 (0.00-0.50) K/uL Baso # (Auto) 0.02 (0.00-0.20) K/uL Immature Gran # (Auto) 0.03 (0.01-0.20) K/uL Sodium 138 (136-145) mmol/L Potassium 3.3 L (3.5-5.1) mmol/L Chloride 106 (98-107) mmol/L Carbon Dioxide 23 (21-32) mmol/L Anion Gap 9 (3-11) BUN 14 (6-23) mg/dl Creatinine 0.66 (0.6-1.2) mg/dl Est Cr Clr Drug Dosing Not Reportable eGFR 102.25 BUN/Creatinine Ratio 21.2 H (10-20) Glucose 105 H (70-99(Fasting)) mg/dl Calcium 8.4 L (8.6-10.3) mg/dl Iron 87 (35-150) mcg/dl TIBC 349 (250-450) mcg/dl Transferrin 249 (200-360) mg/dl Transferrin % Sat 25 (15-50) % Ferritin 255.2 (8-388) ng/ml Total Bilirubin 0.5 (0.2-1.0) mg/dl AST 19 (13-39) U/L ALT 9 (7-52) U/L Alkaline Phosphatase 75 (34-104) U/L Total Protein 6.7 (6.0-8.3) gm/dl Albumin 3.5 (3.4-5.0) gm/dl Globulin 3.2 (2.5-4.0) gm/dl Albumin/Globulin Ratio 1.1 (0.9-2) Vitamin B12 390 (180-914) pg/ml Folate > 22.30 (>5.38) ng/ml Administered Medications Hydromorphone HCl (Hydromorphone Assessment Services Manager 30 Mg/30 Ml) 30 mg IV PRN PRN; Protocol 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 Pain Titration Stop: 01/30/25 13:12 Last Admin: 01/16/25 17:35 Dose: 30 mg Documented By: BRANDON Co-signed By: QGV Discontinued Medications Fentanyl Citrate (Fentanyl Citrate Pf 100 Mcg/2 Ml Vial) 75 mcg IV NOW STA Stop: 01/16/25 10:56 Last Admin: 01/16/25 11:05 Dose: 75 mcg Documented By: AIXA Potassium Chloride (K Andrews / Wtr) 10 meq in 100 mls @ 100 mls/hr IV Q1H JAMEY Stop: 01/16/25 15:59 Last Infusion: 01/16/25 16:45 Dose: Infused Documented By: Admin: 01/16/25 15:34 Dose: 100 mls/hr Documented By: Infusion: 01/16/25 15:19 Dose: Infused Documented By: Admin: 01/16/25 14:19 Dose: 100 mls/hr Documented By: AIXA Losartan Potassium (Losartan Potassium 25 Mg Tab) 12.5 mg PO NOW STA Stop: 01/16/25 14:05 Last Admin: 01/16/25 14:50 Dose: 12.5 mg Documented By: AIXA Imaging Data Radiologist's Impression: Chest X-Ray 01/16/25 10:56 XR chest 1V portable 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 Heart size and pulmonary vasculature are normal. No effusion, consolidation, or pneumothorax. IMPRESSION: Well-positioned PICC line. No acute findings. IMPRESSION: ACT 112: Negative or not required by law. Electronically signed by: Lamberto Martinez M.D. 01/16/2025 11:25 AM Discharge Plan Visit Data Chief Complaint: Rectal Pain Stated Complaint: RECTAL CA, SEVERE PAIN, INCONTINENT, LETHARGY ED Provider: Rigoberto Sanford Discharge Problem: Pain, rectal, Anemia, Hypokalemia, Hypomagnesemia, History of rectal cancer Discharge Instructions Interventions: ED Discharge Assessment Last Done: 01/16/25 16:44 Discharge Problem: Anemia Qualifiers: Anemia type: unspecified type Qualified Code(s): D64.9 - Anemia, unspecified
[2025-01-16] MEDS: fentaNYL citrate PF 100 MCG/2 ML VIAL IV STA (11:05)
--- NOTE | 2025-01-16 11:27 | XRay Report ---
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 Heart size and pulmonary vasculature are normal. No effu chiara, consolidation, or pneumothorax. IMPRESSION: Well-positioned PICC line. No acute findings. IMPRESSION: ACT 112: Negative or not required by law. Electronically signed by: Lamberto Martinez M.D. 01/16/2025 11:25 AM
[2025-01-16 11:46] LABS: Basophils # (auto) 0.02 K/uL (0.00-0.20); Basophils % (auto) 0.4 %; Eosinophils % (auto) 1.8 %; Hematocrit (blood only) 32.8 % (37.0-47.0); Hemoglobin 10.8 g/dl (12.0-16.0); Immature Granulocytes # (auto) 0.03 K/uL (0.01-0.20); Immature Granulocytes % (auto) 0.6 %; Lymphocytes # (auto) 0.19 K/uL (1.20-3.40); Lymphocytes % (auto) 3.5 %; Mean Corpuscular Hemoglobin 28.1 pg (25.0-34.0); Mean Corpuscular Hgb Conc 32.9 g/dL (32.0-36.0); Mean Corpuscular Volume 85.4 fL (80.0-100.0); Monocytes # (auto) 0.51 K/uL (0.11-0.59); Monocytes % (auto) 9.4 %; Neutrophils # (auto) 4.56 K/uL (1.40-6.50); Neutrophils % (auto) 84.3 %; Platelet Count 186 K/uL (130-400); RDW Coefficient of Variation 16.5 % (11.5-14.5); RDW Standard Deviation 41.4 fL (36.4-46.3); Red Blood Count 3.84 M/uL (4.20-5.40); White Blood Count 5.41 K/ul (4.8-10.8)
[2025-01-16 12:06] LABS: Albumin Level 3.5 gm/dl (3.4-5.0); Anion Gap 9 (3-11); Bilirubin,Total 0.5 mg/dl (0.2-1.0); Calcium 8.4 mg/dl (8.6-10.3); Carbon Dioxide 23 mmol/L (21-32); Chloride 106 mmol/L (98-107); Potassium 3.3 mmol/L (3.5-5.1); Sodium 138 mmol/L (136-145)
[2025-01-16 12:37] LABS: Alanine Aminotransferase 9 U/L (7-52); Albumin Globulin Ratio 1.1 (0.9-2); Alkaline Phosphatase 75 U/L (34-104); Aspartate Aminotransferase 19 U/L (13-39); BUN Creatinine Ratio 21.2 (10-20); Blood Urea Nitrogen 14 mg/dl (6-23); Globulin 3.2 gm/dl (2.5-4.0); Glucose 105 mg/dl (70-99(Fasting)); Total Protein 6.7 gm/dl (6.0-8.3)
--- NOTE | 2025-01-16 12:56 | History & Physical Report ---
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 Patient presented on 01/16 at the behest of radiation oncology for worsening rectal pain related to her cancer. Patient came in today for pain management. #Cancer related pain Home regimen includes oxycodone 15 mg p.o. 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 IV antiemetics as needed #Anal cancer Patient first began developing pain in the rectal region in September 2024; saw PCP on 10/15/2024 PET/CT scan on 12/07/2024 showed a rectal mass measuring 8 cm Patient was started on chemoradiation with mitomycin and capecitabine on 12/18/2024 These medications were placed on hold on Saturday 01/13 due to stool leakage Continue to hold chemotherapy for now Radiation oncology consult appreciated while inpatient #Recent fall Patient came into the ED on 01/13 for fall onto her left side Chest CT on 01/13 did not reveal any acute findings Fall precautions PT/OT evaluations appreciated #PICC line Noted; CXR showed PICC line as well positioned #Hypokalemia Mild; K 3.3 on arrival Replete/monitor #Anemia Hgb 10.8 on arrival (downtrending) Suspect this could be due to chemotherapy/radiation therapy While patient denies melena or bright red blood in her stool, she has been having bright red blood when she wipes Fe panel, ferritin, vitamin B12, and folate ordered, pending Note: Oral iron was deferred in the past due to risk of constipation; should she develop significant symptoms/anemia, would recommend treatment with IV iron infusions Trend H&H Disposition: Admit to [facility] telemetry Full code Regular diet VTE PPx: SCDs; will defer chemical DVT PPx on admission due to recurrent falls and new onset anemia History of Present Illness Chief Complaint: Cancer-related rectal pain Primary Care Provider: Santa Watson MD Mounika is a pleasant 59-year-old female with PMH of 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 Patient presented on 01/16 at the behest of radiation oncology for worsening rectal pain related to her cancer. Patient came in today for pain management. She reports that the pain is in her cancer region, and she characterizes it as a constant pain that she rates 20/10 at worst, and 5/10 after receiving pain medicine in the ED. Normally, the pain is somewhat tolerable when she sits still, but moving around, going to the bathroom, and almost everything else irritates and exacerbates the pain. No radiation upper back or down her legs. She has been taking oxycodone at home as needed for the pain, and was recently i ncreased from 10 mg to 50 mg as needed. She is unsure how frequently she is taking these tablets at home. Additionally she takes Tylenol as needed for the pain. Patient's last BM was this morning, she reports that it was a large BM and was loose. No dark tarry stool. No bright red blood in her stool, but she does report bright red blood when she wipes. Patient has not been eating as much at home, as she has been afraid to go to the bathroom. She stopped taking her chemotherapy p.o. medications on Monday because she was having stool leakage throughout the day. She is still doing radiation therapy, and received her last radiation therapy this morning on 01/16. Patient did not take her regular morning medicine today; her only new medication besides increasing oxycodone dosages that she started a topical cream for her rectal pain. She also uses Aquaphor. She reports no swelling, erythema, or drainage from her PICC site. She did have a recent fall where she fell onto her right chest wall, and came to the emergency department; reports some residual right-sided rib pain. Patient denies smoking, tobacco use, recent alcohol use. Patient is mildly hypertensive at 155/96 at time admission; vitals otherwise stable. ED course: Fentanyl Citrate 75 mcg IV ROS: Patient endorses severe/debillating rectal pain, intermittent chills and night- sweats, difficulty concentrating, dizziness, rib pain (attributes to fall), intermittent chest palpitations (which she attributes to pain), pleuritic CP (attributes to rib pain), nausea, loose stool, burning with urination, and numbness/tingling in the right arm (attributes to PICC line). Patient denies fever, chest pain, abdominal pain, vomiting, BRB in stool, or blood in urine. Allergies Allergy/AdvReac Type Severity Reaction Status Date / Time Sulfa (Sulfonamide Allergy Severe GOES Verified 01/06/25 09:14 Antibiotics) ALMOST BLIND Iodinated Contrast Media Allergy Intermediate HIVES/ITCHING, Verified 01/06/25 09:14 BIG LUMPS/WELTS house dust mite AdvReac Mild ITCHING Verified 01/06/25 09:14 Home Medications Medication Instructions Recorded Confirmed Type citalopram 40 mg tablet 40 mg PO PM 10/16/24 01/16/25 History duloxetine 60 mg capsule,delayed 60 mg PO UD 10/16/24 01/16/25 History release levothyroxine 25 mcg tablet 25 mcg PO QAM 10/16/24 01/16/25 History pravastatin 40 mg tablet 40 mg PO PM 10/16/24 01/16/25 History losartan 25 mg tablet 12.5 mg (1/2 x 25 mg) PO QAM #90 11/27/24 01/16/25 Rx tabs acetaminophen 500 mg tablet 1,000 mg PO Q6H PRN Pain 12/30/24 01/16/25 History (Tylenol Extra Strength) capecitabine 500 mg tablet (Xeloda) 1,800 mg PO UD 01/06/25 01/16/25 History nystatin 100,000 unit/gram topical 1 applic topical BID #60 grams 01/13/25 01/16/25 Rx powder zinc acetate 50 mg (zinc) capsule 50 mg PO QAM 01/13/25 01/16/25 History lidocaine HCl 4 % topical gel with 1 applic topical UD severe rectal 01/16/25 01/16/25 History pump pain mupirocin calcium 2 % topical cream 1 applic topical UD 01/16/25 01/16/25 History ondansetron 8 mg disintegrating 8 mg PO DIRECTED PRN n/v 01/16/25 01/16/25 History tablet oxycodone 15 mg tablet 15 mg PO Q4H PRN severe cancer 01/16/25 01/16/25 Rx pain 1 month #180 tabs prochlorperazine maleate 10 mg 10 mg PO DIRECTED PRN n/v 01/16/25 01/16/25 History tablet Past Med/Surg History Problem List (Updated 01/16/25 @ 09:33 by Kristin Haddad DNP) Weakness generalized Limited family support Palliative care by specialist Cancer related pain Chest wall contusion (Acute) Chest pain (Acute) Squamous cell carcinoma of anus (Chronic 10/25/24) History of colon polyps Perimenopausal vasomotor symptoms Prediabetes Rectal bleeding Double vision Vitamin D deficiency Kidney stone Arthritis Cognitive complaints Cervicalgia Cervicogenic headache Vertigo (Acute) Morbid obesity (Acute) Mixed hyperlipidemia (Acute) Hypertension (Acute) Hiatal hernia (Acute) Hematuria, microscopic (Acute) Depression (Acute) Chronic sinusitis (Acute) Chronic insomnia (Acute) Leg swelling (Acute) Bilateral hip pain (Acute) Back pain (Chronic) Hyperlipidemia (Chronic) Medical History (Updated 01/16/25 @ 09:33 by Kristin Haddad DNP) Rectal bleeding reason for upcoming colonoscopy History of kidney stones Prediabetes diet controlled Depression Hypertension Hyperlipidemia Slow to wake up after anesthesia Fibromyalgia Osteoarthritis DDD (degenerative disc disease) Urinary leakage just on occasion GERD (gastroesophageal reflux disease) Obesity 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 Maldonado 08-12-21 History of left breast biopsy benign History of endometrial ablation last menstrual period 2016 History of esophagogastroduodenoscopy (EGD) Hx of colonoscopy History of bladder surgery History of wisdom tooth extraction Family History Mother Arthritis COPD (chronic obstructive pulmonary disease) Hypertension Dyslipidemia Irritable bowel syndrome (IBS) Father Arthritis Diabetes Atrial fibrillation Hodgkin lymphoma Leukemia Squamous cell skin cancer Kidney disease Hypertension Dyslipidemia Stroke Cancer Heart disease Son No problems noted. Son No problems noted. Other Breast cancer Gallbladder disease Lung disease Denies family history of Ovarian cancer Prostate cancer Myocardial infarction Colorectal cancer Social History Smoking Status: Never smoker Second Hand Exposure: Yes (as kid); Do You Dip or Chew Tobacco: No; Hx Alcohol Use: No Hx Substance Use: No Preferred Language: Maltese Communication Ability: Effective Visual Impairment: No Limitations Hearing Ability: Normal Dimmer Board Operator Required: No Beliefs That Will Affect Care: None marital status: Current Living Situation: Family Current Living Situation Comment: 2 sons also live with pt current occupational status: employed 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 [employer] How many Children do You have: 2 Feels Safe at Home: Yes Childhood Exposure to Second-Hand Smoke: Yes Diet: regular Diet Comment: regular caffeine: Yes during the past year weight has: remained stable Dental Care, Regularly: Yes Physical Activity Frequency: Daily Seatbelt Use: always Sunscreen Use: No Assistive Devices: Glasses Review of Systems Review of Systems: See HPI above Physical Exam Physical Exam: General: no acute distress; pleasant affect; non-toxic appearing; well- nourished; cooperative; SpO2 96% on RA HEENT: normocephalic, atraumatic; no scleral icterus; PERRLA w/ EOMs intact; vision and hearing grossly intact Neck: supple; no lymphadenopathy; trachea midline Skin: warm, dry without signs of tenting; no cyanosis; no rashes, bruising, lesions, or erythema noted CV: Mild right-sided flank/rib pain; the rest of her chest wall is NTP; RRR; S1/S2 normal; no murmurs/rubs/gallops; pulses intact and symmetric at radial, DP, and PT RUE: PICC line in place without erythema, swelling, drainage, or signs of infection Lungs: no acute respiratory distress; symmetrical chest wall expansion; clear breath sounds across all lung pitts w/o adventitious sounds; no wheezing ABD: Soft, NTP; BS present; no rebound/guarding; no distention MSK: no tics or fasciculations; no edema noted in the LEs b/l, nonerythematous Neuro: A&Ox3; normal mood and affect; fluent speech; no focal deficits; sensation intact and symmetric in lower extremities bilaterally Results & Data Results & Data Vital Signs (Past 12 Hours) Vital Signs Temp Pulse Pulse Resp BP BP Pulse Ox 01/16/25 12:54 78 18 155/96 H 96 01/16/25 12:10 86 01/16/25 11:49 97 01/16/25 10:34 36.5 C 107 H 18 125/85 98 O2 Del Method 01/16/25 12:54 Room Air 01/16/25 12:10 01/16/25 11:49 Room Air 01/16/25 10:34 Room Air Laboratory Results Abnormal lab results 01/16/25 Range/Units 11:05 RBC 3.84 L (4.20-5.40) M/uL Hgb 10.8 L (12.0-16.0) g/dl Hct 32.8 L (37.0-47.0) % RDW Coeff of Edith 16.5 H (11.5-14.5) % MPV 8.0 L (9.4-12.4) fL Lymph # (Auto) 0.19 L (1.20-3.40) K/uL Potassium 3.3 L (3.5-5.1) mmol/L BUN/Creatinine Ratio 21.2 H (10-20) Glucose 105 H (70-99(Fasting)) mg/dl Calcium 8.4 L (8.6-10.3) mg/dl Diagnostic Findings Chest X-Ray 01/16/25 10:56 XR chest 1V portable 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 Heart size and pulmonary vasc ulature are normal. No effusion, consolidation, or pneumothorax. IMPRESSION: Well-positioned PICC line. No acute findings. IMPRESSION: ACT 112: Negative or not required by law. Electronically signed by: Lamberto Martinez M.D. 01/16/2025 11:25 AM ECG Additional Comments: ECG on 01/13/2025 revealed NSR at 97 bpm; QTc 431 Code Status & VTE Plan Code Status Full code VTE Prophylaxis Plan VTE Prophylaxis will be ordered: Yes Supervising Physician Co-Signing Physician Notes I have personally seen, evaluated and examined the patient. I have also personally discussed the management of the patient with the resident physician/MICHAEL and I agree with the exam findings documented in the history and physical examination and the documented assessment and plan unless otherwise stated below. Brief Exam: In general very pleasant 59-year-old female is alert and oriented x 3 at time my exam. She states that the fentanyl helped her pain significantly that she received in the ER at 75 mcg IV x 1. HEENT: Cephalic atraumatic Heart: Regular rate and rhythm no murmur or ectopy or rub Lungs: Diminished but clear. Abdomen is protuberant soft nontender no appreciable organomegaly or abdominal bruits. Her pain is all in the rectal region. Extremities are intact with no significant edema. Assessment/plan: As described above. 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 . Uncontrolled hypertension is noted. However she has not received her oral antihypertensives yet today which are going to be ordered to start now However we are going do a CT of the abdomen pelvis to rule out any acute pathology that may be contributing to her increased pain. This CAT scan is pending at the time of this dictation. Please refer to orders for further planning. PG Care Time/CCT Total # of Minutes Spent Total Time Spent with Patient: Total time spent is greater than 50% in coordination of care (as documented) at patient's floor/unit and/or counseling patient: [place] [address] INT INP/OBS CARE 3/75MIN Patient Type Established Medical Decision Making High Complexity Diagnoses Cancer related pain G89.3 Squamous cell carcinoma of anus C21.0
[2025-01-16] MEDS ORDERED: NALOXONE HCL 0.4 MG/1 ML VIAL/CARP IV PRN (13:13)
--- NOTE | 2025-01-16 13:25 | Palliative Care Consultation ---
Date of Consultation January 16, 2025 Assessment & Plan (1) Cancer related pain: Prior to this admission, Gisele is using oxycodone 30 mg/day, with 0 relief of her very severe cancer related pain. Oxycodone 30 mg/day = morphine 60 mg p.o. per day Morphine 60 mg p.o. per day = morphine 20 mg IV per day Morphine 20 mg IV per day = 4 mg Dilaudid IV per day. Dilaudid 4 mg/day = 0.166 mg/h Dilaudid Will begin a Dilaudid infusion as follows: Dilaudid loading dose 0.1 mg. Dilaudid IMPORT/EXPORT ANALYST every 15 minutes as needed at 0.1 mg per dose No continuous infusion rate. I will reassess patient tomorrow to assess for relief, I can be paged throughout the evening and overnight if needed for further modifications. (2) Weakness generalized: (3) Limited family support: (4) Palliative care by specialist: see clinic note from earlier today Plan She has a potentially curable cancer and treatment has been very rough for her. She is struggling with the burdens of symptom intensity and very uncontrolled pain along with bowel function loss, loss of dignity and feelings of hopelessness. We discussed the role of pall med for cancer pain and sx mgt as well as psychosocial needs Case d/w Dr Henry/onc and Marisela au PA-C/rad onc, all in agreement for an acute pain crisis admission. Thank you for allowing us to participate in the ongoing care of this patient. Please page with any additional concerns. Ruth Haddad DNP Director, Palliative Medicine History of Present Illness Reason for Consultation: very severe cancer pain History of Present Illness Mounika Sullivan is a 59-year-old female with very severe cancer related pain due to squamous cell carcinoma of the anal canal. She is currently on chemoradiation with mitomycin and capecitabine. She presents today for an acute pain management visit in palliative medicine outpatient clinic. She reports very severe and ongoing, uncontrolled cancer related pain. She has increasing bowel incontinence and severe diarrhea. The chronic diarrhea continues to aggravate her very severe cancer pain due to radiation induced changes, burning, excoriation and she reports she is unable to even maintain any level of personal hygiene from her anus to her perivaginal area and this has become very disheartening. For her pain, she has been using oxycodone 5 mg tablets every 4 hours as needed. She reports that on average she is taking 6 tablets a day and there has been no relief provided but this dose. She was advised to increase her dose to 10 mg and she was also prescribed mupirocin ointment for her rectal pain and burning. She reports that her chemo is currently on hold due to a decline in her performance status following a fall. She went to the ER on 01/13/2025 after the fall with increased pain. She reports at the time she had fallen on the ice and injured the right side of her chest wall but trauma eval did not find any acute fractures. She did not have any loss of consciousness or mental status changes. She reports that now she is having increasing pain on the left side of her ribs radiating around her rib cage and sometimes feeling like it is squeezing her. She denies any changes in breathing, no shortness of breath, no cough. She denies fever sweats and chills. She denies any recent exposures to sick contacts or viral illnesses. At the time of this visit, she is accompanied by her son and her father. She is tearful, lying on her side on the exam table, and any minimal activity causes increased pain. Gisele is no longer able to manage her activities of personal care and daily living without some assistance. Unfortunately assistance at home is limited because she shares a home with 2 elderly and aging parents as well as her 2 adult sons. Both sons work full-time, and the son who is with her today, Sandi, reports that he is working 2 jobs. They are all very supportive emotionally and would like to support the patient as best as they can but there are physical limitations to what they are able to do. She does not have home health nursing support other than a nurse who comes in once a week to change her PICC line dressing. Oncology history: She reported developing pain in the rectal region in September 2024 was found to have inguinal adenopathy. She underwent a CAT scan of the abdomen and pelvis which revealed a collapsed rectum concerning findings for a mass, perirectal and left inguinal adenopathy and a colonoscopy on October 25 revealed infiltrative nonobstructing medium-sized mass in the anus and the biopsy revealed a poorly differentiated anal squamous cell carcinoma. Her PET/CT on 12/07/2024 showed a rectal mass measuring 8 cm multiple hypermetabolic posterior left pelvic lymph nodes mildly enlarged left inguinal lymph nodes and no other hyper metabolic isms seen in the abdomen or pelvis. She was started on concurrent chemoradiation with mitomycin and capecitabine on 12/18/2024. Allergies Allergy/AdvReac Type Severity Reaction Status Date / Time Sulfa (Sulfonamide Allergy Severe GOES Verified 01/06/25 09:14 Antibiotics) ALMOST BLIND Iodinated Contrast Media Allergy Intermediate HIVES/ITCHING, Verified 01/06/25 09:14 BIG LUMPS/WELTS house dust mite AdvReac Mild ITCHING Verified 01/06/25 09:14 Home Medications Medication Instructions Recorded Confirmed Type citalopram 40 mg tablet 40 mg PO PM 10/16/24 01/16/25 History duloxetine 60 mg capsule,delayed 60 mg PO UD 10/16/24 01/16/25 History release levothyroxine 25 mcg tablet 25 mcg PO QAM 10/16/24 01/16/25 History pravastatin 40 mg tablet 40 mg PO PM 10/16/24 01/16/25 History losartan 25 mg tablet 12.5 mg (1/2 x 25 mg) PO QAM #90 11/27/24 01/16/25 Rx tabs acetaminophen 500 mg tablet 1,000 mg PO Q6H PRN Pain 12/30/24 01/16/25 History (Tylenol Extra Strength) capecitabine 500 mg tablet (Xeloda) 1,800 mg PO UD 01/06/25 01/16/25 History nystatin 100,000 unit/gram topical 1 applic topical BID #60 grams 01/13/25 01/16/25 Rx powder zinc acetate 50 mg (zinc) capsule 50 mg PO QAM 01/13/25 01/16/25 History lidocaine HCl 4 % topical gel with 1 applic topical UD severe rectal 01/16/25 01/16/25 History pump pain mupirocin calcium 2 % topical cream 1 applic topical UD 01/16/25 01/16/25 History ondansetron 8 mg disintegrating 8 mg PO DIRECTED PRN n/v 01/16/25 01/16/25 History tablet oxycodone 15 mg tablet 15 mg PO Q4H PRN severe cancer 01/16/25 01/16/25 Rx pain 1 month #180 tabs prochlorperazine maleate 10 mg 10 mg PO DIRECTED PRN n/v 01/16/25 01/16/25 History tablet Patient History Medical History (Updated 01/16/25 @ 09:33 by Kristin Haddad DNP) Rectal bleeding reason for upcoming colonoscopy History of kidney stones Prediabetes diet controlled Depression Hypertension Hyperlipidemia Slow to wake up after anesthesia Fibromyalgia Osteoarthritis DDD (degenerative disc disease) Urinary leakage just on occasion GERD (gastroesophageal reflux disease) Obesity Cardiac murmur no special education curriculum specialist History of COVID-19 09/26/24 tested at [facility], took Paxlovid, > body aches headache, weakness, loss of taste > symptoms resolved Surgical History H/O excision of mass (08/12/21) Left Upper Extremity Mass Excision 1.[address] Maldonado 08-12-21 History of left breast biopsy benign History of endometrial ablation last menstrual period 2016 History of esophagogastroduodenoscopy (EGD) Hx of colonoscopy History of bladder surgery History of wisdom tooth extraction Family History Mother Arthritis COPD (chronic obstructive pulmonary disease) Hypertension Dyslipidemia Irritable bowel syndrome (IBS) Father Arthritis Diabetes Atrial fibrillation Hodgkin lymphoma Leukemia Squamous cell skin cancer Kidney disease Hypertension Dyslipidemia Stroke Cancer Heart disease Son No problems noted. Son No problems noted. Other Breast cancer Gallbladder disease Lung disease Denies family history of Ovarian cancer Prostate cancer Myocardial infarction Colorectal cancer Social History Smoking Status: Never smoker Second Hand Exposure: Yes (as kid); Do You Dip or Chew Tobacco: No; Hx Alcohol Use: No Hx Substance Use: No Preferred Language: Greek Communication Ability: Effective Visual Impairment: No Limitations Hearing Ability: Normal Director Microbiology Required: No Beliefs That Will Affect Care: None marital status: Current Living Situation: Family Current Living Situation Comment: 2 sons also live with pt current occupational status: 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 She is lying on her right side, on the exam table, in acute severe distress, crying and curled into a fet al position. She denies any chest pain or shortness of breath. Respiratory effort is slightly increased. She has no JVD and no tachycardia. She reports significant pain to the rectal region with loss of bowel function. She is not able to maintain personal hygiene and there is fecal contamination noted. She is not able to maintain any position of comfort for any prolonged time and will sit up reposition or try to walk short distances in the exam room. She is otherwise awake alert and oriented x 3. She is very tearful, somewhat agitated and very anxious. She is able to move all extremities. Strength is reasonably intact symmetrically and throughout. Results & Data Vital Signs (Past 12 Hours) Vital Signs Temp Pulse Pulse Resp BP BP Pulse Ox 01/16/25 12:54 78 18 155/96 H 96 01/16/25 12:10 86 01/16/25 11:49 97 01/16/25 10:34 36.5 C 107 H 18 125/85 98 O2 Del Method 01/16/25 12:54 Room Air 01/16/25 12:10 01/16/25 11:49 Room Air 01/16/25 10:34 Room Air Laboratory Results 01/16/25 Range/Units 11:05 WBC 5.41 (4.8-10.8) K/ul RBC 3.84 L (4.20-5.40) M/uL Hgb 10.8 L (12.0-16.0) g/dl Hct 32.8 L (37.0-47.0) % MCV 85.4 (80.0-100.0) fL MCH 28.1 (25.0-34.0) pg MCHC 32.9 (32.0-36.0) g/dL RDW Std Deviation 41.4 (36.4-46.3) fL RDW Coeff of Edith 16.5 H (11.5-14.5) % Plt Count 186 (130-400) K/uL MPV 8.0 L (9.4-12.4) fL Immature Gran % (Auto) 0.6 % Neut % (Auto) 84.3 % Lymph % (Auto) 3.5 % [place] % (Auto) 9.4 % Eos % (Auto) 1.8 % Baso % (Auto) 0.4 % Neut # (Auto) 4.56 (1.40-6.50) K/uL Lymph # (Auto) 0.19 L (1.20-3.40) K/uL [place] # (Auto) 0.51 (0.11-0.59) K/uL Eos # (Auto) 0.10 (0.00-0.50) K/uL Baso # (Auto) 0.02 (0.00-0.20) K/uL Immature Gran # (Auto) 0.03 (0.01-0.20) K/uL Sodium 138 (136-145) mmol/L Potassium 3.3 L (3.5-5.1) mmol/L Chloride 106 (98-107) mmol/L Carbon Dioxide 23 (21-32) mmol/L Anion Gap 9 (3-11) BUN 14 (6-23) mg/dl Creatinine 0.66 (0.6-1.2) mg/dl Est Cr Clr Drug Dosing Not Reportable eGFR 102.25 BUN/Creatinine Ratio 21.2 H (10-20) Glucose 105 H (70-99(Fasting)) mg/dl Calcium 8.4 L (8.6-10.3) mg/dl Total Bilirubin 0.5 (0.2-1.0) mg/dl AST 19 (13-39) U/L ALT 9 (7-52) U/L Alkaline Phosphatase 75 (34-104) U/L Total Protein 6.7 (6.0-8.3) gm/dl Albumin 3.5 (3.4-5.0) gm/dl Globulin 3.2 (2.5-4.0) gm/dl Albumin/Globulin Ratio 1.1 (0.9-2) Diagnostic Findings Chest X-Ray 01/16/25 10:56 XR chest 1V portable 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 Heart size and pulmonary vasculature are normal. No effusion, consolidation, or pneumothorax. IMPRESSION: Well-positioned PICC line. No acute findings. IMPRESSION: ACT 112: Negative or not required by law. Electronically signed by: Lamberto Martinez M.D. 01/16/2025 11:25 AM PG Care Time/CCT Total # of Minutes Spent Total Time Spent with Patient: Total time spent is greater than 50% in coordination of care (as documented) at patient's floor/unit and/or counseling patient: I spent 70 minutes overall addressing this case: 15 min in medical data review/discussion with referring provider(s) and/or preparation for the visit 15 min in direct interaction with the patient/exam 00 min in Advance Care Planning/Goals of Care discussions as detailed above in note (must be >16min) 15 min in subsequent review and synthesis of assessment and plan 25 min communicating with other providers regarding the patient's case: med onc, rad onc, [place] [address] IN/OBS CONSULT LVL 5,80M Patient Type New History Comprehensive Exam Comprehensive Medical Decision Making High Complexity Diagnoses Cancer related pain G89.3 Weakness generalized R53.1 Limited family support Z63.8 Palliative care by specialist Z51.5
--- NOTE | 2025-01-16 14:15 | CT Scan Report ---
ABDOMEN AND PELVIS CT WITHOUT CONTRAST CT DOSE: 1394.82 mGy.cm HISTORY: Acute rectal pain. Patient with known cancer Rectal pain / worsening cancer-related pain TECHNIQUE: Multiaxial CT images of the abdomen and pelvis were performed without contrast. A dose lo wering technique was utilized adhering to the principles of ALARA. COMPARISON STUDY: PET/CT on November 27, 2024 FINDINGS: Bibasilar atelectasis. No pneumatosis or pneumoperitoneum. The unenhanced spleen, pancreas, adrenal glands and gallbladder are unremarkable. Hepatic steatosis. Unremarkable kidneys. No hydrone phrosis. Decompressed urinary bladder. Atherosclerosis of the aorta. Primary anorectal mass redemonstrated with adjacent metastatic perirectal lymph nodes. A 9 mm perirec hanna lymph node image 277 previously measured 12 mm. There is also decreased size of the pelvic sidewa ll and inguinal chain lymph nodes. Mild perirectal inflammation. No definite new or progressive disea se identified on this noncontrast scan. No bowel obstruction. Normal appendix. No acute fracture. No destructive bone lesion identified. Small fat filled umbilical hernia with diastases recti. IMPRESSION: 1. Primary anorectal malignancy demonstrated. No bowel obstruction or pneumoperitoneum. 2. Mildly decreased size of the metastatic lymph nodes within the pelvis suggestive of partial treatm ent response. 3. Normal appendix. 4. Hepatic steatosis. ACT 112: Negative or not required by law. The above report was generated using voice recognition software. It may contain grammatical, syntax o r spelling errors. Electronically signed by: Diony Obregon M.D. 01/16/2025 2:13 PM
[2025-01-16] MEDS: POTASSIUM CHLORIDE / WTR 10 MEQ/100 ML PLCT IV SCH (14:19)
[2025-01-16 14:32] LABS: Iron 87 mcg/dl (35-150); Total Iron Binding Cap Calc 349 mcg/dl (250-450); Transferrin 249 mg/dl (200-360); Transferrin (FE) Percent Satur 25 % (15-50)
[2025-01-16 14:49] LABS: Ferritin 255.2 ng/ml (8-388)
[2025-01-16] MEDS: LOSARTAN POTASSIUM 25 MG TAB PO STA (14:50)
[2025-01-16 15:15] LABS: Folate (Folic Acid),Ser orPlas > 22.30 ng/ml (>5.38)
[2025-01-16 15:16] LABS: Vitamin B12 390 pg/ml (180-914)
[2025-01-16] MEDS ORDERED: PROCHLORPERAZINE MALEATE 10 MG TAB PO PRN (16:44)
[2025-01-16] MEDS ORDERED: PUMP TOP SCH (16:44)
[2025-01-16] MEDS ORDERED: ONDANSETRON INJ 2 MG/ML 2 ML VIAL IV PRN (16:44)
[2025-01-16] MEDS ORDERED: LIDOCAINE HCL 4% TOP SCH (16:44)
[2025-01-16] MEDS: HYDROmorphone PCA 30 MG/30 ML IV PRN (17:35)
[2025-01-16] MEDS: CITALOPRAM 40 MG TAB PO SCH (22:30)
[2025-01-16] MEDS: PRAVASTATIN SOD 40 MG TAB PO SCH (22:30)
[2025-01-17 05:10] LABS: Basophils # (auto) 0.02 K/uL (0.00-0.20); Basophils % (auto) 0.4 %; Eosinophils # (auto) 0.28 K/uL (0.00-0.50); Eosinophils % (auto) 5.7 %; Hematocrit (blood only) 32.4 % (37.0-47.0); Hemoglobin 10.6 g/dl (12.0-16.0); Immature Granulocytes # (auto) 0.02 K/uL (0.01-0.20); Immature Granulocytes % (auto) 0.4 %; Lymphocytes # (auto) 0.15 K/uL (1.20-3.40); Mean Corpuscular Hemoglobin 28.9 pg (25.0-34.0); Mean Corpuscular Hgb Conc 32.7 g/dL (32.0-36.0); Mean Corpuscular Volume 88.3 fL (80.0-100.0); Monocytes # (auto) 0.64 K/uL (0.11-0.59); Neutrophils # (auto) 3.83 K/uL (1.40-6.50); Neutrophils % (auto) 77.5 %; Platelet Count 164 K/uL (130-400); RDW Coefficient of Variation 17.2 % (11.5-14.5); RDW Standard Deviation 44.4 fL (36.4-46.3); Red Blood Count 3.67 M/uL (4.20-5.40); White Blood Count 4.94 K/ul (4.8-10.8)
[2025-01-17 05:27] LABS: BUN Creatinine Ratio 18.6 (10-20); Calcium 8.5 mg/dl (8.6-10.3); Creatinine Clr Calc Pharmacy 98.1 ml/min; Magnesium 2.1 mg/dl (1.7-2.4)
[2025-01-17] MEDS ORDERED: NON-FORMULARY MEDICATION (Zinc Acetate 50 mg (zinc) Capsule) PO SCH (09:00)
--- NOTE | 2025-01-17 09:14 | Radiation OncologyConsultation ---
Date of Consultation January 17, 2025 Assessment & Plan (1) Squamous cell carcinoma of anus: Plan Assessment: Ms. Sullivan is a 59-year-old female who is currently receiving chemotherapy and radiation therapy for anal cancer. The patient has received 22 of 30 planned fractions for radiation therapy. Currently, the patient's chemotherapy is on hold due to excessive diarrhea. The patient was seen by palliative care in the outpatient setting and was sent to the emergency room for urgent pain management in the inpatient setting. Patient is now admitted to the hospital for pain management. Plan: 1. Hold radiation therapy today. Reevaluate on Monday. 2. Pain management as per primary team and palliative care. 3. Consider Keflex and Diflucan to reduce perianal symptoms including possible infection. Sitz bath could also be beneficial. 4. Aquaphor should be used in the perianal region if possible. 5. Imodium and/or Lomotil could be considered to help with diarrhea. 6. Patient and primary medical team encouraged to call us with any further questions or concerns. History of Present Illness Attending Physician: Finn Baxter MD History of Present Illness 07/30/2024. Issues with constipation. KUB. Small stool burden without evidence of fecal impaction. 10/15/2024. Primary care follow-up. Patient was found to have a rectal mass and inguinal adenopathy on examination. CT was ordered. 10/15/2024. CT of the abdomen and pelvis. Rectal mass and left groin mass. 1. Suboptimal assessment of the collapsed rectum which demonstrates prominent soft tissue density. Considerations include mass and hemorrhoids. 2. Perirectal and left inguinal adenopathy. 3. Hepatic steatosis. 10/25/2024. Colonoscopy (Dr. Boyer). Digital rectal exam reveals a 2 cm mass of the anus. This is nonobstructive. Biopsies were taken. Pathology report reveals: Infiltrative anal squamous cell carcinoma, poorly differentiated. - See comment. 11/08/2024. Colorectal consultation (Dr. Wild). Recommendation for chemotherapy and radiation. She will need a PET/CT. Referral to radiation oncology and medical oncology. 11/12/2024. Pathology review at [facility] of the specimen from 10/25/2024. 1. Anus, anal mass, biopsy ([id number]; 10/25/2024): -Poorly differentiated squamous cell carcinoma (see microscopic description). Microscopic Description Received outside immunohistochemistry shows that the tumor cells are positive for pancytokeratin Omari, p16, and p40, while negative for CDX2, consistent with squamous cell carcinoma. The Ki-67 index is high. No lymphovascular invasion identified. 11/19/2024. Medical oncology consultation (Dr. Henry). Recommendation for PET/CT. If there is no evidence of distant metastatic disease we will treat with concurrent chemotherapy and radiation. Treatment with Xeloda/mitomycin. Referral to radiation oncology. 11/25/2024. Renal ultrasound. No hydronephrosis or renal calculi seen. 11/27/2024. PET/CT. Rectal cancer with metastatic posterior left pelvic and left inguinal adenopathy. 12/03/2024. Radiation oncology consultation. Patient is symptomatic with discomfort regarding the anus. Recommendations for pelvic chemoradiation therapy. 12/18/2024. Patient starts radiation therapy with chemotherapy. 01/16/2025. Palliative care consultation for pain management. Patient sent to emergency room for inpatient pain management. Allergies Allergy/AdvReac Type Severity Reaction Status Date / Time Sulfa (Sulfonamide Allergy Severe GOES Verified 01/06/25 09:14 Antibiotics) ALMOST BLIND Iodinated Contrast Media Allergy Intermediate HIVES/ITCHING, Verified 01/06/25 09:14 BIG LUMPS/WELTS house dust mite AdvReac Mild ITCHING Verified 01/06/25 09:14 Home Medications Medication Instructions Recorded Confirmed Type citalopram 40 mg tablet 40 mg PO PM 10/16/24 01/16/25 History duloxetine 60 mg capsule,delayed 60 mg PO UD 10/16/24 01/16/25 History release levothyroxine 25 mcg tablet 25 mcg PO QAM 10/16/24 01/16/25 History pravastatin 40 mg tablet 40 mg PO PM 10/16/24 01/16/25 History losartan 25 mg tablet 12.5 mg (1/2 x 25 mg) PO QAM #90 11/27/24 01/16/25 Rx tabs acetaminophen 500 mg tablet 1,000 mg PO Q6H PRN Pain 12/30/24 01/16/25 History (Tylenol Extra Strength) capecitabine 500 mg tablet (Xeloda) 1,800 mg PO UD 01/06/25 01/16/25 History nystatin 100,000 unit/gram topical 1 applic topical BID #60 grams 01/13/25 01/16/25 Rx powder zinc acetate 50 mg (zinc) capsule 50 mg PO QAM 01/13/25 01/16/25 History lidocaine HCl 4 % topical gel with 1 applic topical UD severe rectal 01/16/25 01/16/25 History pump pain mupirocin calcium 2 % topical cream 1 applic topical UD 01/16/25 01/16/25 History ondansetron 8 mg disintegrating 8 mg PO DIRECTED PRN n/v 01/16/25 01/16/25 History tablet oxycodone 15 mg tablet 15 mg PO Q4H PRN severe cancer 01/16/25 01/16/25 Rx pain 1 month #180 tabs prochlorperazine maleate 10 mg 10 mg PO DIRECTED PRN n/v 01/16/25 01/16/25 History tablet Patient History Medical History Rectal bleeding reason for upcoming colonoscopy History of kidney stones Prediabetes diet controlled Depression Hypertension Hyperlipidemia Slow to wake up after anesthesia Fibromyalgia Osteoarthritis DDD (degenerative disc disease) Urinary leakage just on occasion GERD (gastroesophageal reflux disease) Obesity Cardiac murmur no transport rn History of COVID-19 09/26/24 tested at [facility], took Paxlovid, > body aches headache, weakness, loss of taste > symptoms resolved Surgical History H/O excision of mass (08/12/21) Left Upper Extremity Mass Excision 1.[address] Maldonado 08-12-21 History of left breast biopsy benign History of endometrial ablation last menstrual period 2016 History of esophagogastroduodenoscopy (EGD) Hx of colonoscopy History of bladder surgery History of wisdom tooth extraction Family History Mother Arthritis COPD (chronic obstructive pulmonary disease) Hypertension Dyslipidemia Irritable bowel syndrome (IBS) Father Arthritis Diabetes Atrial fibrillation Hodgkin lymphoma Leukemia Squamous cell skin cancer Kidney disease Hypertension Dyslipidemia Stroke Cancer Heart disease Son No problems noted. Son No problems noted. Other Breast cancer Gallbladder disease Lung disease Denies family history of Ovarian cancer Prostate cancer Myocardial infarction Colorectal cancer Social History Smoking Status: Never smoker Second Hand Exposure: Yes (as kid); Do You Dip or Chew Tobacco: No; Hx Alcohol Use: No Hx Substance Use: No Preferred Language: Cambodian Communication Ability: Effective Visual Impairment: No Limitations Hearing Ability: Normal Casualty Underwriter Required: No Beliefs That Will Affect Care: None marital status: Current Living Situation: Parent and Family Current Living Situation Comment: 2 sons also live with pt 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 SCC. cT3/4N1cM0. Stage IIIC. Treatment: Chemotherapy and radiation therapy. Review of Systems Review of Systems: Patient continues to use to complain of significant diarrhea and perianal discomfort. Physical Exam Physical Exam: Manager Library offered. Patient declined. Constitutional: WD/WN, vitals as above Skin: Erythema and moist desquamation noted involving the perianal region. Time Spent Attending This documentation has been prepared in part by, Catalina Estrada PA-C, acting as a scribe under my direction. I, Yahaira Steinberg MD, personally performed the services described and have reviewed the documentation to ensure its accuracy. I spent 20 minutes in preparation for this consultation including reviewing all the clinical records, reviewing laboratory studies, pathology reports and imaging results. I spent 20 minutes with direct face to face interaction with the patient and/or family including performing a physical exam and answering all questions. I spent 20 minutes documenting this patient's visit. PG Care Time/CCT Total # of Minutes Spent Total Time Spent with Patient: Total time spent is greater than 50% in coordination of care (as documented) at patient's floor/unit and/or counseling patient: Coding Level of Care Code 59988 IN/OBS CONSULT LVL 2,35M Diagnoses Squamous cell carcinoma of anus C21.0
[2025-01-17] MEDS: FLUCONAZOLE 100 MG TAB PO SCH (11:18)
[2025-01-17] MEDS: LOSARTAN POTASSIUM 25 MG TAB PO SCH (11:18)
[2025-01-17] MEDS: LEVOTHYROXINE SODIUM 25 MCG TABLET PO SCH (11:18)
[2025-01-17] MEDS: DULoxetine HCL 60 MG CAP PO SCH (11:18)
[2025-01-17] MEDS: cephALEXin 500 MG CAP PO STA (11:18)
--- NOTE | 2025-01-17 17:36 | Palliative Care Progress Note ---
Date of Service January 17, 2025 Assessment & Plan (1) Cancer related pain: Plan: Increase Dilaudid to 0.2mg METALSMITH q15min No continuous rate See what she uses through weekend and we can begin conversion to oral - this will require CM assistance to determine formulary options and costs (2) Palliative care by specialist: Plan As wilner Thank you for allowing us to participate in the ongoing care of this patient. Please page with any additional concerns. Ruth Haddad DNP Director, Palliative Medicine Admission and Anticipated Discharge Date Admission Date: January 16, 2025 Subjective pain is better but still signif, rates 6/10 would like lido cream while here appetite better with improved pain does not feel like she wants to "throw in the towel" anymore expresses a lot of gratitude and appreciation for RN/MARY butler divya with her personal hygiene which was a struggle and demeaning to her Review of Systems Review of Systems: All systems reviewed & are unremarkable except as noted in Subjective Physical Exam Physical Exam: NCAT PERRLA Supine in bed, eating resp effort WNL, lungs CTA S1S2, no JVD Abd mild tender, BS+ CAREY Skin pink,warm Mood improved: inc eye contact, smiling, +humor Results & Data Vital Signs (Past 12 Hours) Vital Signs Temp Pulse Pulse Resp BP BP Pulse Ox 01/17/25 16:15 95 H 01/17/25 14:27 36.8 C 84 20 112/75 97 01/17/25 12:36 84 21 131/91 99 01/17/25 11:30 81 19 124/74 97 01/17/25 10:33 90 14 121/77 99 01/17/25 10:03 91 H 17 113/71 97 01/17/25 08:27 78 21 123/81 97 01/17/25 08:03 76 18 121/82 97 01/17/25 07:24 79 01/17/25 07:09 86 14 129/81 98 01/17/25 06:00 75 16 115/70 94 O2 Del Method O2 Flow Rate 01/17/25 16:15 01/17/25 14:27 Room Air 01/17/25 12:36 01/17/25 11:30 01/17/25 10:33 01/17/25 10:03 01/17/25 08:27 01/17/25 08:03 01/17/25 07:24 01/17/25 07:09 01/17/25 06:00 Nasal Cannula 2 Laboratory Results 01/17/25 01/16/25 Range/Units 04:36 11:05 WBC 4.94 5.41 (4.8-10.8) K/ul RBC 3.67 L 3.84 L (4.20-5.40) M/uL Hgb 10.6 L 10.8 L (12.0-16.0) g/dl Hct 32.4 L 32.8 L (37.0-47.0) % MCV 88.3 85.4 (80.0-100.0) fL MCH 28.9 28.1 (25.0-34.0) pg MCHC 32.7 32.9 (32.0-36.0) g/dL RDW Std Deviation 44.4 41.4 (36.4-46.3) fL RDW Coeff of Edith 17.2 H 16.5 H (11.5-14.5) % Plt Count 164 186 (130-400) K/uL MPV 8.0 L 8.0 L (9.4-12.4) fL Immature Gran % (Auto) 0.4 0.6 % Neut % (Auto) 77.5 84.3 % Lymph % (Auto) 3.0 3.5 % Loup % (Auto) 13.0 9.4 % Eos % (Auto) 5.7 1.8 % Baso % (Auto) 0.4 0.4 % Neut # (Auto) 3.83 4.56 (1.40-6.50) K/uL Lymph # (Auto) 0.15 L 0.19 L (1.20-3.40) K/uL Loup # (Auto) 0.64 H 0.51 (0.11-0.59) K/uL Eos # (Auto) 0.28 0.10 (0.00-0.50) K/uL Baso # (Auto) 0.02 0.02 (0.00-0.20) K/uL Immature Gran # (Auto) 0.02 0.03 (0.01-0.20) K/uL Sodium 137 138 (136-145) mmol/L Potassium 4.0 D 3.3 L (3.5-5.1) mmol/L Chloride 107 106 (98-107) mmol/L Carbon Dioxide 24 23 (21-32) mmol/L Anion Gap 6 9 (3-11) BUN 13 14 (6-23) mg/dl Creatinine 0.70 0.66 (0.6-1.2) mg/dl Est Cr Clr Drug Dosing 98.1 Not Reportable eGFR 100.81 102.25 BUN/Creatinine Ratio 18.6 21.2 H (10-20) Glucose 110 H 105 H (70-99(Fasting)) mg/dl Calcium 8.5 L 8.4 L (8.6-10.3) mg/dl Magnesium 2.1 (1.7-2.4) mg/dl Iron 87 (35-150) mcg/dl TIBC 349 (250-450) mcg/dl Transferrin 249 (200-360) mg/dl Transferrin % Sat 25 (15-50) % Ferritin 255.2 (8-388) ng/ml Total Bilirubin 0.5 (0.2-1.0) mg/dl AST 19 (13-39) U/L ALT 9 (7-52) U/L Alkaline Phosphatase 75 (34-104) U/L Total Protein 6.7 (6.0-8.3) gm/dl Albumin 3.5 (3.4-5.0) gm/dl Globulin 3.2 (2.5-4.0) gm/dl Albumin/Globulin Ratio 1.1 (0.9-2) Vitamin B12 390 (180-914) pg/ml Folate > 22.30 (>5.38) ng/ml Diagnostic Findings Chest X-Ray 01/16/25 10:56 XR chest 1V portable 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 Heart size and pulmonary vasculature are normal. No effusion, consolidation, or pneumothorax. IMPRESSION: Well-positioned PICC line. No acute findings. IMPRESSION: ACT 112: Negative or not required by law. Electronically signed by: Lamberto Martinez M.D. 01/16/2025 11:25 AM Abdomen/Pelvis CT 01/16/25 13:[address] WITHOUT CONTRAST CT DOSE: 1394.82 mGy.cm HISTORY: Acute rectal pain. Patient with known cancer Rectal pain / worsening cancer-related pain TECHNIQUE: Multiaxial CT images of the abdomen and pelvis were performed without contrast. A dose lowering technique was utilized adhering to the principles of ALARA. COMPARISON STUDY: PET/CT on November 27, 2024 FINDINGS: Bibasilar atelectasis. No pneumatosis or pneumoperitoneum. The unenhanced spleen, pancreas, adrenal glands and gallbladder are unremarkable. Hepatic steatosis. Unremarkable kidneys. No hydronephrosis. Decompressed urinary bladder. Atherosclerosis of the aorta. Primary anorectal mass redemonstrated with adjacent metastatic perirectal lymph nodes. A 9 mm perirectal lymph node image 277 previously measured 12 mm. There is also decreased size of the pelvic sidewall and inguinal chain lymph nodes. Mild perirectal inflammation. No definite new or progressive disease identified on this noncontrast scan. No bowel obstruction. Normal appendix. No acute fracture. No destructive bone lesion identified. Small fat filled umbilical hernia with diastases recti. IMPRESSION: 1. Primary anorectal malignancy demonstrated. No bowel obstruction or pneumoperitoneum. 2. Mildly decreased size of the metastatic lymph nodes within the pelvis suggestive of partial treatment response. 3. Normal appendix. 4. Hepatic steatosis. ACT 112: Negative or not required by law. The above report was generated using voice recognition software. It may contain grammatical, syntax or spelling errors. Electronically signed by: Diony Obregon M.D. 01/16/2025 2:13 PM PG Care Time/CCT Total # of Minutes Spent Total Time Spent: 65 Total Time Spent with Patient: Total time spent is greater than 50% in coordination of care (as documented) at patient's floor/unit and/or counseling patient: [place] [address] SUB INP/OBS CARE 3/50MIN Patient Type Established History Comprehensive Exam Comprehensive Medical Decision Making High Complexity Diagnoses Cancer related pain G89.3 Palliative care by specialist Z51.5
--- NOTE | 2025-01-17 17:49 | Hospitalist Progress Note ---
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 Patient presented on 01/16 at the behest of radiation oncology for worsening rectal pain related to her cancer; admitted for acute pain crisis. #Cancer related pain Home regimen includes oxycodone 15 mg p.o. q4-6h, acetaminophen, and topical creams CT A/P negative for acute pathology that may be contributing to her pain. Noted primary anorectal malignancy with mildly decreased size of metastatic LN suggestive of partial treatment response Palliative care directing pain regimen Dilaudid MATERIAL PLANNING ANALYST increased to 0.2 mg q15min Continue lidocaine cream to perianal region Rad onc, Dr. Steinberg, following as well Recommended starting Keflex 500 mg PO QID and Diflucan 200 mg QAM to cover for perianal skin infection Consider sitz bath Narcan on-call #Anal cancer Patient first began developing pain in the rectal region in September 2024; saw PCP on 10/15/2024 PET/CT scan on 12/07/2024 showed a rectal mass measuring 8 cm Patient was started on chemoradiation with mitomycin and capecitabine on 12/18/2024 These medications were placed on hold on Saturday 01/13 due to stool leakage Continue to hold chemotherapy for now Radiation oncology consult appreciated while inpatient #Recent fall Patient came into the ED on 01/13 for fall onto her left side - Chest CT on 01/13 did not reveal any acute findings Fall precautions PT/OT evaluations appreciated #Anemia Hgb down trending, suspect this could be due to chemotherapy/radiation therapy While patient denies melena or bright red blood in her stool, she has been having bright red blood when she wipes Fe panel, ferritin, vitamin B12, and folate WNL Oral iron was deferred in the past due to risk of constipation; should she d evelop significant symptoms/anemia, would recommend treatment with IV iron infusions #Depression Continue duloxetine 60 mg daily Dispo: Continued inpatient stay for ongoing pain control VTE PPx: SCDs; will defer chemical DVT PPx on admission due to recurrent falls and new onset anemia Admission and Anticipated Discharge Date Admission Date: January 16, 2025 Supervising Physician Co-Signing Physician Notes Attending Attestation - Chart reviewed, care plan d/w KIANNA Jeffery. I agree w/ the monge components of her documentation. Appreciate rad onc and palliative care consults/recs. Finn Baxter MD Subjective Patient seen and evaluated at bedside. She reports that her rectal pain is improved, though pain control is not yet ideal. She states the palliative care provider just saw her and plan to increase her pain regimen. She reports her appetite is fair. She did get some sleep last night, noting she had trouble sleeping the past few nights due to severe pain. She denies any nausea, vomiting, abdominal pain, chest pain, shortness of breath, headache. We discussed the current plan laid out by hospitalist team, radiation oncology, and palliative care. Questions/concerns answered. No additional complaints or concerns at this time. Physical Exam Physical Exam: General: No acute distress, nondiaphoretic, well-developed, well-nourished. Cardiac: Regular rate and rhythm without murmurs gallops or rubs. RUE PICC line in place without erythema, swelling, drainage, or signs of infection. Pulm: Clear to auscultation bilaterally without wheezes, rales or rhonchi. No respiratory distress. 97% on room air. Abdominal: Soft, nontender, nondistended. Bowel sounds present. : Patient reports Dr. Steinberg already evaluated her perianal region today and asked for this to be deferred. Neuro: A&O x3. No focal neurological deficits. Results & Data Results & Data Vital Signs (Past 12 Hours) Vital Signs Temp Pulse Pulse Resp BP BP Pulse Ox 01/17/25 16:15 95 H 01/17/25 14:27 98.2 F 84 20 112/75 97 01/17/25 12:36 84 21 131/91 99 01/17/25 11:30 81 19 124/74 97 01/17/25 10:33 90 14 121/77 99 01/17/25 10:03 91 H 17 113/71 97 01/17/25 08:27 78 21 123/81 97 01/17/25 08:03 76 18 121/82 97 01/17/25 07:24 79 01/17/25 07:09 86 14 129/81 98 01/17/25 06:00 75 16 115/70 94 O2 Del Method O2 Flow Rate 01/17/25 16:15 01/17/25 14:27 Room Air 01/17/25 12:36 01/17/25 11:30 01/17/25 10:33 01/17/25 10:03 01/17/25 08:27 01/17/25 08:03 01/17/25 07:24 01/17/25 07:09 01/17/25 06:00 Nasal Cannula 2 Laboratory Results Reviewed CBC with differential Reviewed BMP, mag Diagnostic Findings Reviewed CT A/P Reviewed CXR PG Care Time/CCT Total # of Minutes Spent Total Time Spent with Patient: Total time spent is greater than 50% in coordination of care (as documented) at patient's floor/unit and/or counseling patient: Coding Level of Care Code 24907 SUB INP/OBS CARE 2/35MIN Diagnoses Cancer related pain G89.3 Squamous cell carcinoma of anus C21.0 Pain, rectal K62.89 Anemia D64.9 Anemia type: unspecified type (4) Anemia Anemia type: unspecified type Qualified Code(s): D64.9 - Anemia, unspecified
[2025-01-17] MEDS: cephALEXin 500 MG CAP PO SCH (19:44)
[2025-01-17] MEDS: LIDOCAINE 4% CREAM 15 GM TUBE EXT SCH (19:45)
[2025-01-18 06:56] LABS: Hematocrit (blood only) 30.9 % (37.0-47.0)
--- NOTE | 2025-01-18 08:20 | Hospitalist Progress Note ---
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 Patient presented on 01/16 at the behest of radiation oncology for worsening rectal pain related to her cancer; admitted for acute pain crisis. #Cancer related pain Home regimen includes oxycodone 15 mg p.o. q4-6h, acetaminophen, and topical creams CT A/P negative for acute pathology that may be contributing to her pain. Noted primary anorectal malignancy with mildly decreased size of metastatic LN suggestive of partial treatment response Palliative care directing pain regimen Continue Dilaudid UMBRELLA TIPPER 0.2 mg q15min Continue lidocaine cream to perianal region Started Benadryl 50 mg q6h PRN opioid induced pruritus #Anal cancer Patient first began developing pain in the rectal region in September 2024; saw PCP on 10/15/2024 PET/CT scan on 11/27/2024 showed a rectal mass measuring 8 cm with metastatic posterior left pelvic and left inguinal adenopathy Started chemoradiation with mitomycin and capecitabine on 12/18/2024 Placed on hold on 01/13 due to stool leakage Rad onc, Dr. Steinberg, consulted Started/Continue Keflex 500 mg PO QID and Diflucan 200 mg QAM to cover for perianal skin infection Continue to hold chemotherapy and radiation for now; will reevaluate on 01/20 #Anemia Hgb down trending, suspect this could be due to chemotherapy/radiation therapy While patient denies melena or bright red blood in her stool, she has been having bright red blood when she wipes Fe panel, ferritin, vitamin B12, and folate WNL Oral iron was deferred in the past due to risk of constipation; should she develop significant symptoms/anemia, would recommend treatment with IV iron infusions #Recent fall Patient came into the ED on 01/13 for fall onto her left side - Chest CT on 01/13 did not reveal any acute findings Fall precautions PT/OT evaluations appreciated #Depression Continue duloxetine 60 mg daily Dispo: Continued inpatient stay for ongoing pain control VTE PPx: SCDs; will defer chemical DVT PPx on admission due to recurrent falls and new onset anemia Admission and Anticipated Discharge Date Admission Date: January 16, 2025 Subjective Patient seen and evaluated at bedside. She reports her pain is better controlled today. She was able to sleep a decent amount overnight. She still does not have much of an appetite, but she does prioritize eating most of her meals. She notes some itchiness. No additional complaints or concerns at this time. Physical Exam Physical Exam: General: No acute distress, nondiaphoretic, well-developed, well-nourished. Cardiac: Regular rate and rhythm without murmurs gallops or rubs. RUE PICC line in place without erythema, swelling, drainage, or signs of infection. Pulm: Clear to auscultation bilaterally without wheezes, rales or rhonchi. No respiratory distress. 97% on room air. Abdominal: Soft, nontender, nondistended. Bowel sounds present. Neuro: A&O x3. No focal neurological deficits. Results & Data Results & Data Vital Signs (Past 12 Hours) Vital Signs Temp Pulse Pulse Resp BP Pulse Ox O2 Del Method 01/18/25 08:06 97.9 F 86 18 106/72 Room Air 01/18/25 07:46 97.7 F 85 18 108/73 97 Nasal Cannula 01/18/25 02:26 97.9 F 70 17 106/71 98 Nasal Cannula 01/17/25 22:55 97.5 F L 77 16 115/76 97 Nasal Cannula 01/17/25 22:05 79 01/17/25 22:00 Nasal Cannula O2 Flow Rate 01/18/25 08:06 01/18/25 07:46 01/18/25 02:26 2 01/17/25 22:55 2 01/17/25 22:05 01/17/25 22:00 2 Laboratory Results Reviewed H&H PG Care Time/CCT Total # of Minutes Spent Total Time Spent with Patient: Total time spent is greater than 50% in coordination of care (as documented) at patient's floor/unit and/or counseling patient: Coding Level of Care Code 96371 SUB INP/OBS CARE 2/35MIN Diagnoses Cancer related pain G89.3 Squamous cell carcinoma of anus C21.0 Pain, rectal K62.89 Anemia D64.9 Anemia type: unspecified type (4) Anemia Anemia type: unspecified type Qualified Code(s): D64.9 - Anemia, unspecified
[2025-01-18] MEDS: diphenhydrAMINE Capsule 25 MG CAP PO ONE (11:40)
[2025-01-18] MEDS: diphenhydrAMINE Capsule 25 MG CAP PO PRN (20:31)
[2025-01-19 06:10] LABS: Hematocrit (blood only) 32.3 % (37.0-47.0); Hemoglobin 10.5 g/dl (12.0-16.0); Mean Corpuscular Hemoglobin 29.5 pg (25.0-34.0); Mean Corpuscular Hgb Conc 32.5 g/dL (32.0-36.0); Mean Corpuscular Volume 90.7 fL (80.0-100.0); Mean Platelet Volume 7.9 fL (9.4-12.4); Platelet Count 169 K/uL (130-400); RDW Coefficient of Variation 17.8 % (11.5-14.5); RDW Standard Deviation 47.5 fL (36.4-46.3); Red Blood Count 3.56 M/uL (4.20-5.40); White Blood Count 5.36 K/ul (4.8-10.8)
--- NOTE | 2025-01-19 15:44 | Hospitalist Progress Note ---
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 Patient presented on 01/16 at the behest of radiation oncology for worsening rectal pain related to her cancer; admitted for acute pain crisis. Home pain regimen includes oxycodone 15 mg p.o. q4-6h, acetaminophen, and topical creams. CT A/P on admission negative for acute pathology that may be contributing to her pain; noted primary anorectal malignancy with mildly decreased size of metastatic LN suggestive of partial treatment response. #Cancer related pain Transition to PO pain regimen - started Dilaudid 2 mg PO Q3H PRN - should try first line before CAREER TECHNOLOGY TEACHER Continue Dilaudid CAREER TECHNOLOGY TEACHER 0.2 mg q15min - used 4.8 mg in total yesterday (01/18) Continue lidocaine cream to perianal region Continue Benadryl 50 mg q6h PRN opioid induced pruritus Palliative care following, appreciate recs #Anal cancer Patient first began developing pain in the rectal region in September 2024; saw PCP on 10/15/2024 PET/CT scan on 11/27/2024 showed a rectal mass measuring 8 cm with metastatic posterior left pelvic and left inguinal adenopathy Started chemoradiation with mitomycin and capecitabine on 12/18/2024 Placed on hold on 01/13 due to stool leakage Rad onc, Dr. Steinberg, consulted Started/Continue Keflex 500 mg PO QID and Diflucan 200 mg QAM to cover for perianal skin infection Continue to hold chemotherapy and radiation for now; will reevaluate on 01/20 #Anemia Hgb down trending, suspect this could be due to chemotherapy/radiation therapy While patient denies melena or bright red blood in her stool, she has been having bright red blood when she wipes Fe panel, ferritin, vitamin B12, and folate WNL Oral iron was deferred in the past due to risk of constipation; should she develop significant symptoms/anemia, would recommend treatment with IV iron infusions #Recent fall Patient came into the ED on 01/13 for fall onto her left side - Chest CT on 01/13 did not reveal any acute findings Fall precautions PT/OT evaluations appreciated #Depression Continue duloxetine 60 mg daily Dispo: Continued inpatient stay for ongoing pain control VTE PPx: SCDs; will defer chemical DVT PPx on admission due to recurrent falls and new onset anemia Adjusted pain regimen Admission and Anticipated Discharge Date Admission Date: January 16, 2025 Subjective Patient seen and evaluated at bedside. She reports significant improvement in her pain, currently rates her pain 3/10. She reports little sleep overnight due to multiple episodes of stool incontinence. She does report a good appetite. We discussed transitioning to oral pain regimen today, while still keeping CAREER TECHNOLOGY TEACHER available. She is agreeable to this plan. No additional complaints or concerns at this time. Physical Exam Physical Exam: General: No acute distress, nondiaphoretic, well-developed, well-nourished. Cardiac: Regular rate and rhythm without murmurs gallops or rubs. RUE PICC line in place without erythema, swelling, drainage, or signs of infection. Pulm: Normal respiratory effort. 96% on room air. Abdominal: Soft, nontender, nondistended. Bowel sounds present. Neuro: A&O x3. No focal neurological deficits. Results & Data Results & Data Vital Signs (Past 12 Hours) Vital Signs Temp Pulse Pulse Resp BP Pulse Ox O2 Del Method 01/19/25 15:00 97.7 F 76 18 102/70 98 Nasal Cannula 01/19/25 11:28 97.5 F L 80 18 111/78 96 Room Air 01/19/25 07:52 97.7 F 78 18 126/74 97 Room Air 01/19/25 06:54 77 O2 Flow Rate 01/19/25 15:00 2 01/19/25 11:28 01/19/25 07:52 01/19/25 06:54 Laboratory Results Reviewed CBC PG Care Time/CCT Total # of Minutes Spent Total Time Spent with Patient: Total time spent is greater than 50% in coordination of care (as documented) at patient's floor/unit and/or counseling patient: Coding Level of Care Code 55876 SUB INP/OBS CARE 3/50MIN Diagnoses Cancer related pain G89.3 Squamous cell carcinoma of anus C21.0 Pain, rectal K62.89 Anemia D64.9 Anemia type: unspecified type (4) Anemia Anemia type: unspecified type Qualified Code(s): D64.9 - Anemia, unspecified
[2025-01-19] MEDS: HYDROmorphone HCL 2 MG TAB PO PRN (19:18)
[2025-01-20] MEDS: HYDROmorphone HCL 4 MG TAB PO PRN (12:33)
--- NOTE | 2025-01-20 17:14 | Hospitalist Progress Note ---
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 Patient presented on 01/16 at the behest of radiation oncology for worsening rectal pain related to her cancer; admitted for acute pain crisis. Home pain regimen includes oxycodone 15 mg p.o. q4-6h, acetaminophen, and topical creams. CT A/P on admission negative for acute pathology that may be contributing to her pain; noted primary anorectal malignancy with mildly decreased size of metastatic LN suggestive of partial treatment response. 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 Follow up closely w/ their office in the next 2 weeks. Continue lidocaine cream to perianal region Continue Benadryl 50 mg q6h PRN opioid induced pruritus Palliative care following, #Anal cancer Patient first began developing pain in the rectal region in September 2024; saw PCP on 10/15/2024 PET/CT scan on 11/27/2024 showed a rectal mass measuring 8 cm with metastatic posterior left pelvic and left inguinal adenopathy Started chemoradiation with mitomycin and capecitabine on 12/18/2024 Treatment placed on hold 01/13 due to stool leakage - radiation resumed 01/20. chemo still on hold Rad onc, Dr. Steinberg, consulted - Started/Continue Keflex 500 mg PO QID and Diflucan 200 mg QAM to cover for perianal skin infection #Anemia Hgb down trending, suspect this could be due to chemotherapy/radiation therapy While patient denies melena or bright red blood in her stool, she has been having bright red blood when she wipes Fe panel, ferritin, vitamin B12, and folate WNL Oral iron was deferred in the past due to risk of constipation; should she develop significant symptoms/anemia, would recommend treatment with IV iron infusions #Recent fall Patient came into the ED on 01/13 for fall onto her left side - Chest CT on 01/13 did not reveal any acute findings Fall precautions PT/OT evaluations - per patient has no concerns going home #Depression Continue duloxetine 60 mg daily Anticipate discharge home 01/21 pending insurance approval of outpatient PO Dilaudid. Case discussed with palliative care, Dr. Torres, and CM 01/20. Admission and Anticipated Discharge Date Admission Date: January 16, 2025 Supervising Physician Co-Signing Physician Notes PA Supervision Note: I did not personally see or examine the patient today, but I verified all monge points of KIANNA Beck's assessment and plan with the following exceptions/additions: None Subjective Patient seen and examined this morning. Patient reports that her pain is a 6/10 today. She reports that her pain is improving and she feels this could be managed at home. She still is experiencing anal leakage when standing and she is unable to make it to the restroom sometimes as well. She is to start back her radiation treatments today. She denies any abdominal pain, nausea, vomiting. Physical Exam Constitutional: WD/WN, vitals as above Eyes: PERRL, conjunctivae normal, anicteric sclerae Respiratory: breathing unlabored Cardiovascular: well perfused Musculoskeletal: moves all extremities Psychiatric: A+Ox3, euthymic affect Results & Data Results & Data Vital Signs (Past 12 Hours) Vital Signs Temp Pulse Pulse Resp BP Pulse Ox O2 Del Method 01/20/25 15:20 36.5 C 85 20 115/75 93 Room Air 01/20/25 14:58 86 01/20/25 13:05 Room Air 01/20/25 11:11 36.8 C 78 18 108/72 97 Nasal Cannula 01/20/25 07:32 36.5 C 80 18 108/72 99 Room Air 01/20/25 07:12 77 O2 Flow Rate 01/20/25 15:20 01/20/25 14:58 01/20/25 13:05 01/20/25 11:11 2 01/20/25 07:32 01/20/25 07:12 PG Care Time/CCT Total # of Minutes Spent Total Time Spent with Patient: Total time spent is greater than 50% in coordination of care (as documented) at patient's floor/unit and/or counseling patient: Coding Level of Care Code 09648 SUB INP/OBS CARE 3/50MIN Diagnoses Cancer related pain G89.3 Squamous cell carcinoma of anus C21.0 Pain, rectal K62.89 Anemia D64.9 Anemia type: unspecified type (4) Anemia Anemia type: unspecified type Qualified Code(s): D64.9 - Anemia, unspecified
[2025-01-21 06:05] LABS: Hemoglobin 10.2 g/dl (12.0-16.0); Mean Corpuscular Hemoglobin 28.8 pg (25.0-34.0); Mean Corpuscular Hgb Conc 31.9 g/dL (32.0-36.0); Mean Corpuscular Volume 90.4 fL (80.0-100.0); Platelet Count 174 K/uL (130-400); RDW Coefficient of Variation 18.1 % (11.5-14.5); RDW Standard Deviation 50.7 fL (36.4-46.3); Red Blood Count 3.54 M/uL (4.20-5.40); White Blood Count 5.56 K/ul (4.8-10.8)
[2025-01-21 06:16] LABS: Albumin Globulin Ratio 1.2 (0.9-2); Albumin Level 3.4 gm/dl (3.4-5.0); BUN Creatinine Ratio 22.7 (10-20); Bilirubin,Total 0.4 mg/dl (0.2-1.0); Calcium 8.8 mg/dl (8.6-10.3); Creatinine Clr Calc Pharmacy 79.5 ml/min; Globulin 2.8 gm/dl (2.5-4.0); Potassium 4.2 mmol/L (3.5-5.1); Total Protein 6.2 gm/dl (6.0-8.3)
--- NOTE | 2025-01-21 09:05 | Discharge Summary ---
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 Patient presented on 01/16 at the behest of radiation oncology for worsening rectal pain related to her cancer; admitted for acute pain crisis. Home pain regimen includes oxycodone 15 mg p.o. q4-6h, acetaminophen, and topical creams. CT A/P on admission negative for acute pathology that may be contributing to her pain; noted primary anorectal malignancy with mildly decreased size of metastatic LN suggestive of partial treatment response. 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 Follow up closely w/ their office in the next 2 weeks. Continue lidocaine cream to perianal region Continue Benadryl 50 mg q6h PRN opioid induced pruritus #Anal cancer Patient first began developing pain in the rectal region in September 2024; saw PCP on 10/15/2024 PET/CT scan on 11/27/2024 showed a rectal mass measuring 8 cm with metastatic posterior left pelvic and left inguinal adenopathy Started chemoradiation with mitomycin and capecitabine on 12/18/2024 Treatment placed on hold 01/13 due to stool leakage - radiation resumed 01/20. chemo still on hold Rad onc, Dr. Steinberg, consulted - Started/Continue Keflex 500 mg PO QID and Diflucan 200 mg QAM to cover for perianal skin infection - sent home w/ 2 additional days of Diflucan and 4 additional days of Keflex to complete course. Re-examined patient's anal area 3/ - appears erythematous but does not appear infected. #Anemia Hgb ~10-10.8 suspect this could be due to chemotherapy/radiation therapy While patient denies melena or bright red blood in her stool, she has been having bright red blood when she wipes Fe panel, ferritin, vitamin B12, and folate WNL Oral iron was deferred in the past due to risk of constipation; should she develop significant symptoms/anemia, would recommend treatment with IV iron infusions #Recent fall Patient came into the ED on 01/13 for fall onto her left side - Chest CT on 01/13 did not reveal any acute findings PT/OT evaluations - per patient has no concerns going home #Depression Continue duloxetine 60 mg daily Patient discharged home 01/21 w/ recommendations to follow up closely w/ medi leny/radiation oncology and palliative care. 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 Patient presented on 01/16 at the behest of radiation oncology for worsening rectal pain related to her cancer. Patient came in today for pain management. She reports that the pain is in her cancer region, and she characterizes it as a constant pain that she rates 20/10 at worst, and 5/10 after receiving pain medicine in the ED. Normally, the pain is somewhat tolerable when she sits still, but moving around, going to the bathroom, and almost everything else irritates and exacerbates the pain. No radiation upper back or down her legs. She has been taking oxycodone at home as needed for the pain, and was recently increased from 10 mg to 50 mg as needed. She is unsure how frequently she is taking these tablets at home. Additionally she takes Tylenol as needed for the pain. Patient's last BM was this morning, she reports that it was a large BM and was loose. No dark tarry stool. No bright red blood in her stool, but she does report bright red blood when she wipes. Patient has not been eating as much at home, as she has been afraid to go to the bathroom. She stopped taking her chemotherapy p.o. medications on Monday because she was having stool leakage throughout the day. She is still doing radiation therapy, and received her last radiation therapy this morning on 01/16. Patient did not take her regular morning medicine today; her only new medication besides increasing oxycodone dosages that she started a topical cream for her rectal pain. She also uses Aquaphor. She reports no swelling, erythema, or drainage from her PICC site. She did have a recent fall where she fell onto her right chest wall, and came to the emergency department; reports some residual right-sided rib pain. Patient denies smoking, tobacco use, recent alcohol use. Patient is mildly hypertensive at 155/96 at time admission; vitals otherwise stable. ED course: Fentanyl Citrate 75 mcg IV ROS: Patient endorses severe/debillating rectal pain, intermittent chills and night- sweats, difficulty concentrating, dizziness, rib pain (attributes to fall), intermittent chest palpitations (which she attributes to pain), pleuritic CP (attributes to rib pain), nausea, loose stool, burning with urination, and numbness/tingling in the right arm (attributes to PICC line). Patient denies fever, chest pain, abdominal pain, vomiting, BRB in stool, or blood in urine. Discharge Exam Constitutional WD/WN, vitals as above Eyes PERRL, conjunctivae normal, anicteric sclerae Respiratory breathing unlabored Cardiovascular well perfused Gastrointestinal (Abdomen) erythematous around anus, no discharge, stool, or bleeding visualized. Musculoskeletal moves all extremities Psychiatric A+Ox3, euthymic affect Discharge Plan Discharge Items Patient Disposition: Home - Self-Care Reason For Visit: CANCER-RELATED PAIN Discharge Diagnosis: Anal cancer, acute pain crisis Activity: Resume your previous activity Non-emergency contact: Primary Care Provider and Oncologist Call non-emergency contact if: you have any medication questions, your symptoms worsen, your pain is not controlled and you have a fever Follow-up/Referrals: Santa Watson MD [Primary Care Provider] - 01/29/25 3:20 pm Yahaira Steinberg MD [Physician] - Kristin Haddad DNP [Nurse Practitioner] - 02/13/25 10:00 am (February 13, 2025 at 10am) Lashanda Henry MD [Physician] - Diet: Regular Addtl Attending Provider Instructions: Ms. Sullivan, You were recently hospitalized due to an acute pain crisis from your cancer. You were treated appropriately and have had an improvement in your symptoms. Please see recommendations below regarding your discharge. 1. Please use Dilaudid 4mg every 4 hours as needed for severe pain. (please stop taking oxycodone) 2. Please take Cephalexin 4 times daily for the next 4 days. Please take with food to avoid GI upset. Your next dose will be around noon today. 3. Please take fluconazole once daily for the next 2 days. Your first dose at home will be 01/22. 4. Please follow up with radiation oncology for continued treatments. 5. Please follow up with oncology. - Our nurse navigator have reached out to their office regarding an appointment for you. If you do not hear anything from Dr. Henry's office by 01/23, please call the office. The office phone number is above. 6. You have been scheduled an appointment with palliative care for continued pain management. This is set for 02/13/2025 at 10am. Please call her office if you have any conflicts regarding this appointment date. 7. You may resume the remainder of your outpatient medications. 8. Please follow up with your PCP within 1-2 weeks of discharge. If you develop any worsening pain, fever, chest pain, shortness of breath please report back to the ER for further care. Sincerely, Lorraine Wilcox PA-C Pending Studies at Discharge: No Stand-Alone Forms: My [employer], Smoking Cessation Medications and DC Order Prescriptions: New hydromorphone 4 mg Tablet 4 mg PO Q4H PRN (Reason: moderate-severe pain) Qty: 90 0RF cephalexin 500 mg Capsule 500 mg PO Q6 Qty: 15 0RF fluconazole 100 mg tablet 100 mg PO DAILY Qty: 4 0RF Rx Instructions: Take 2 tablets by mouth for 2 days Continued acetaminophen [Tylenol Extra Strength] 500 mg tablet 1,000 mg PO Q6H PRN (Reason: Pain) Rx Instructions: otc unable to verify capecitabine [Xeloda] 500 mg tablet 1,800 mg PO UD Patient Comments: Monday thru Monday with RT Rx Instructions: 1800 mg bid. 500 mg filled for #90 21 day supply 01/02; 200 mg filled for #60 21 day supply 01/02 losartan 25 mg tablet 12.5 mg PO QAM Qty: 90 1RF Dose Instruction: TAKE ONE TABLET BY MOUTH EVERY DAY Rx Instructions: TAKE 1/2 TABLET BY MOUTH EVERY DAY nystatin 100,000 unit/gram powder 1 applic topical BID Qty: 60 3RF citalopram 40 mg tablet 40 mg PO PM Rx Instructions: TAKE ONE TABLET BY MOUTH ONE TIME DAILY IN THE EVENING pravastatin 40 mg tablet 40 mg PO PM levothyroxine 25 mcg tablet 25 mcg PO QAM duloxetine 60 mg capsule,delayed release(DR/EC) 60 mg PO UD Rx Instructions: 60 mg po wam. Last filled 11/25/24 30 day supply. zinc acetate 50 mg (zinc) Capsule 50 mg PO QAM Rx Instructions: otc unable to verify prochlorperazine maleate 10 mg tablet 10 mg PO DIRECTED PRN (Reason: n/v) ondansetron 8 mg tablet,disintegrating 8 mg PO DIRECTED PRN (Reason: n/v) mupirocin calcium 2 % cream 1 applic topical UD Rx Instructions: 1 ashtyn topical tid. No fill history available lidocaine HCl 4 % gel with pump 1 applic topical UD Rx Instructions: 1 ashtyn topical qid. not fill history available/otc Discontinued oxycodone 15 mg tablet 15 mg PO Q4H PRN (Reason: severe cancer pain) 30 Days Qty: 180 0RF Discharge Orders: Discharge Order (Routine); Ordered 01/21/25 Ordered By: Lorraine Wilcox Admission Data Admit Date/Time: 01/16/25 13:34 Attending Provider: Alena Torres Admit Provider: Saw Staples Primary Care Provider: Santa Watson Other Providers: Saw Staples; Kristin Haddad; Yahaira Steinberg Other Interventions: Discharge Summary Assessment (RN) Last Done: 01/21/25 09:57 Hospital Stay Data Consultations 01/16/25 12:52 Consult Palliative Care Routine ED Decision to Admit Stat 01/16/25 16:44 Consult Radiation Oncology Routine Diagnostic Imagining Performed 01/16/25 13:36 CT Abdomen and Pelvis [CT abd pelvis wo con] Stat Pending Results Patient Have Any Pending Studies at Discharge: No Discharge Instructions Given to Patient (Per Discharging Provider) Ms. Sullivan, You were recently hospitalized due to an acute pain crisis from your cancer. You were treated appropriately and have had an improvement in your symptoms. Please see recommendations below regarding your discharge. 1. Please use Dilaudid 4mg every 4 hours as needed for severe pain. (please stop taking oxycodone) 2. Please take Cephalexin 4 times daily for the next 4 days. Please take with food to avoid GI upset. Your next dose will be around noon today. 3. Please take fluconazole once daily for the next 2 days. Your first dose at home will be 01/22. 4. Please follow up with radiation oncology for continued treatments. 5. Please follow up with oncology. - Our nurse navigator have reached out to their office regarding an appointment for you. If you do not hear anything from Dr. Henry's office by 01/23, please call the office. The office phone number is above. 6. You have been scheduled an appointment with palliative care for continued pain management. This is set for 02/13/2025 at 10am. Please call her office if you have any conflicts regarding this appointment date. 7. You may resume the remainder of your outpatient medications. 8. Please follow up with your PCP within 1-2 weeks of discharge. If you develop any worsening pain, fever, chest pain, shortness of breath please report back to the ER for further care. Sincerely, Lorraine Wilcox PA-C Supervising Physician Co-Signing Physician Notes PA Supervision Note: I did not personally see or examine the patient today, but I verified all monge points of KIANNA Wilcox's assessment and plan with the following exceptions/additions: None Total Time Total Time Spent Total Time Spent (In Minutes): 50 Total Time Includes: Examination of the Patient, Discharge Planning, Medication Reconciliation and Communication With Other Providers Coding Level of Care Code 19042 INP/OBS DISCH >30 MIN Diagnoses Cancer related pain G89.3 Squamous cell carcinoma of anus C21.0 Pain, rectal K62.89 Anemia D64.9 Anemia type: unspecified type
[2025-01-21 11:10] VITALS: BP 107/69; PULSE 86; RESP 18; TEMP 97.5; O2SAT 94
== END 2025-01-21 11:37 | disposition home or self-care (01) | DRG 375 ==
LOC: ED 10:33 → SUATTDRO 13:34 → EDINP 13:34 → 2N 01-17 14:10